=== PATIENT | female | born 2000 | race Hispanic/Latino ===

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

== ENCOUNTER 2022-06-03 12:10 | Outpatient (CLI) | payer OTHER, SELFPAY ==
[2022-06-03 12:46] LABS: Basophils Absolute Auto 0.1 K/mm3 (0.0-0.1); Eosinophils Absolute Auto 0.1 K/mm3 (0-0.3); Eosinophils Percent Auto 0.9 % (0-4.4); Hemoglobin 13.9 g/dL (12.0-15.0); Immature Granulocyte Absolute 0.03 K/mm3 (0.00-0.031); Immature Granulocyte Percent A 0.3 % (0-0.5); Lymphocytes Absolute Auto 2.59 K/mm3 (0.9-3.2); Lymphocytes Percent Auto 29.1 % (18.3-44.2); Mean Corpuscular HGB Conc 33.1 g/dl (32-36); Mean Corpuscular Hemoglobin 28.5 pg (26-34); Mean Corpuscular Volume 86.1 fl (80-100); Mean Platelet Volume 9.9 fl (7.4-10.4); Monocytes Absolute Auto 0.6 K/mm3 (0.1-0.6); Monocytes Percent Auto 7.1 % (2.6-8.5); Neutrophils Absolute Auto 5.5 K/mm3 (1.3-6.7); Neutrophils Percent Auto 61.6 % (45.5-73.1); Platelet Count Result 269 k/mm3 (150-375); Red Blood Count 4.88 M/mm3 (4.2-5.4); Red Cell Distribution Width 12.9 % (11.5-14.5); White Blood Count 8.9 K/mm3 (4.5-10.0)
[2022-06-03 13:16] LABS: Beta HCG Quantitative < 2.39 mIU/ML
[2022-06-07 10:30] LABS: DHEA-Sulfate 280 mcg/dL (51-321)
[2022-06-07 15:07] LABS: FSH 6.8 mIU/mL (***); Progesterone 0.5 ng/mL (***); Prolactin 10.5 ng/mL (***)
[2022-06-10 12:57] LABS: Testosterone Free 7.7 pg/mL (0.1-6.4); Testosterone Total 30 ng/dL (2-45)
[2022-06-12 21:51] LABS: Estradiol, Ultrasensitive 27 pg/mL
== END 2022-06-03 12:11 | disposition home or self-care (01) ==
LOC: ANHLAB 12:13
PROVIDERS: PCP Physician Assistant; Visit Provider Obstetrics & Gynecology
DX: N92.6 Irregular menstruation, unspecified (principal)
CPT/HCPCS: 36415; 82627; 82670; 83001; 83498; 84144; 84146; 84402; 84403; 84702; 85025

== ENCOUNTER 2022-06-22 01:29 | Day surgery (SDC) | payer OTHER, SELFPAY ==
[2022-06-15 14:11] VITALS: BMI 24.8
--- NOTE | 2022-06-15 14:13 | PC.NURSE ---
Report to the Outpatient Waiting Room, entrance under the green pavilion located off [facility], at time _1100_ on date _06/22/22_. Planned Procedure Time: _1300__. Time changes happen often and if your time is changed the preop area will call you the afternoon before. - You and your visitor will be asked to self-screen and do not enter if you have any COVID symptoms. - A mask is optional within the hospital at this time. Patients may have clear liquids (water, carbonated beverages, clear teas, apple juice) until 3 hours prior to surgery with a maximum of 20 ounces. - No food from midnight until time of surgery - Infants may have breast milk until 4 hours before surgery, infant formula 6 hours prior to surgery. - Children will be allowed to drink immediately following surgery. If applicable, please bring a bottle or sippy cup to assist with drinking. Juice, water, soda, and popsicles are readily available. For infants on formula, please bring formula the day of surgery. Pacifiers are allowed. Take the following medications with a SIP of water the morning of surgery: _pt is on amoxicillin at this time, she thinks she will be done by the ._ DO NOT STOP ANY OF YOUR OTHER PRESCRIPTION MEDICATIONS PRIOR TO SURGERY ?EXCEPT THE FOLLOWING Medications to discontinue per physician ___vitamins or supplements 3 days prior _ Date to take last dose Please no make-up, nail indian, hairspray, perfume, deodorant, or body powder the day of surgery. No jewelry (including any body piercings) or valuables the day of surgery, leave them at home. Please take a shower or bath the night before, or the morning of, surgery with an antibacterial soap. Wear comfortable, loose fitting clothing. Children are encouraged to wear pajamas. - Jewelry must be removed prior to entering the operating room. Rings and piercings that are not removed may be cut off. - The hospital will not accept responsibility for valuables. - Please leave all valuables, including medications, at home the day of surgery. If you are going home after surgery, a licensed corrugated fastener driver must drive you home. - NO public transportation without another adult if you receive anesthesia. - We recommend that an adult stay with you for 24 hours following discharge. - We also recommend that you do not drive, make important decision, drink alcoholic beverages, or take any drugs that were not prescribed by your health care provider for at least 24 hours after your discharge time. For Pediatric surgeries, we recommend two adults accompany the child home. Follow any additional instructions given to you from your surgeon. If you or anyone in your household have experienced Covid symptoms in the past week, please notify your surgeon or the nurse liaison at the phone number below for possible testing. Telephone instructions given to _Patient__and asked if any additional questions and then verbalized understanding. Patient advised to call surgeon office or pre surgery nurse liaison [phone] if any additional questions.
[2022-06-22] VITALS (7 sets, daily range): BP systolic 97–118; BP diastolic 45–73; PULSE 59–89; RESP 15–16; TEMP 37; O2SAT 100; BMI 24.9
--- NOTE | 2022-06-22 07:08 | WPDHPUPDATE1 ---
History and Physical Update Update Date/Time: 06/22/22 07:08 History and Physical has been reviewed, including an updated exam of the patient. There are NO changes in the patient's condition. Risks, benefits, and alternatives have been discussed and questions answered. Patient agrees to proceed with procedure. Proceed with hysteroscopy, polypectomy, possible D&C.
--- NOTE | 2022-06-22 08:52 | WPDANESEPPF ---
Anes - Initial Pre Proc Eval Procedure: Operation Date: 06/22/22 13:00 Proposed Procedures p Hysteroscopy Dilation and Curettage with Polypectomy - Maki Blackmon MD Date/Time: 06/22/22 08:52 Surgeon: Maki Blackmon MD Pre Op Diagnosis: endometrial polyp Patient Data Age: 22 Gender: F Height: 1.5 m Weight: 55.79 kg Allergies Allergy/AdvReac Type Severity Reaction Status Date / Time No Known Allergies Allergy Verified 06/15/22 14:03 Home Medications Medication Instructions Recorded Confirmed Type amoxicillin 500 mg capsule 500 mg PO Q12H 06/10/22 06/15/22 History Patient hx anesthesia problems: none Family hx anesthesia problems: none Results Review: All pre-operative results and documents have been reviewed as part of the pre-operative evaluation. 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 Gender identity (if verbalized by the patient): Female Sexual Orientation (if Verbalized by the Patient): Straight or Heterosexual Spiritual care concerns: No Anes - Eval Final PreProcedure Day of Procedure 06/22/22 08:52 Patient weight: normal Heart: regular rate and rhythm Lungs: clear to auscultation and normal air movement Airway: Mallampati scale class II Neurological: alert and oriented Last oral intake: >/= 8 hours ASA classification: I Emergent: no Anesthetic plan: proceed Anesthesia type and monitoring: general GIVS Results Review: All pre-operative results and documents have been reviewed as part of the pre-operative evaluation. Informed Consent: The patient's anesthetic plan and its attendant risks and benefits were discussed with the patient/family/POA. Questions were solicited and answers provided to the satisfaction of the patient/family/POA.
[2022-06-22] MEDS: LACTATED RINGERS 1,000 ML 30 ML IV CONT (12:05)
[2022-06-22] MEDS: ACETAMINOPHEN 500 MG TABLET 1000 MG PO (12:14)
[2022-06-22] MEDS: KETOROLAC 30 MG/ML VIAL (*BKC) IV PUSH (13:30)
--- NOTE | 2022-06-22 13:38 | W.PM.PROC2 ---
Procedure Note - Detailed Date of Procedure 06/22/22 Pre-op Diagnosis endometrial polyp Post-op Diagnosis Other (AUB) Procedure Performed Hysteroscopy with D&C Surgeon Maki Blackmon MD Anesthesia MAC Findings Uterus 7cm, normal cavity without masses, thickened endometrium throughout. Bilateral tubal ostia visualized. Good hemostasis at end of case. Description of Procedure Cristal was taken to the operating room where she was placed under sedation without complications. She was then prepped and draped in the usual sterile fashion in the dorsal lithotomy position with her legs in low Franck stirrups. A time-out was performed and no perioperative antibiotics were indicated. A bivalve speculum was placed within the vagina where the cervix was easily identified. The anterior lip of the cervix was grasped with a single-tooth tenaculum. The cervix was then serially dilated to allow for the hysteroscope. The hysteroscope was advanced into the uterine cavity with the above findings noted. A very gentle curettage was then performed to obtain a small endometrial sample. The hysteroscope was once again advanced into the uterine cavity where it was noted to be normal. Good hemostasis was noted. All instruments were removed from the vagina. Sponge, lap, instrument, and needle counts were correct at the end of the procedure. Patient was awoken from anesthesia and taken to recovery with plans of same-day discharge. Estimated Blood Loss 5 IV Fluids 700 (Fluid deficit: 0cc) Pathology Yes (endometrial curettings) Complications No immediate complications Condition Stable Disposition Same day [facility] Billing Surgery - Charge Forward: Surgery Billing
[2022-06-22] MEDS: ONDANSETRON INJ 4 MG/2 ML VIAL IV PUSH (14:24)
[2022-06-22] MEDS: oxyCODONE HCL (*CRX) 5 MG TAB IR PO (15:16)
== END 2022-06-22 16:20 | disposition home or self-care (01) ==
PROVIDERS: PCP Physician Assistant; Visit Provider Obstetrics & Gynecology
PROC: 0U5B8ZZ Destruction of Endometrium, Via Natural or Artificial Opening Endoscopic (ICD-10-PCS; CPT 58563; principal; 2022-06-22 13:00)
DX: N93.9 Abnormal uterine and vaginal bleeding, unspecified (principal)
CPT/HCPCS: 58558; 88305; A9270; J1885; J2250; J2405; J2704; J3010; J7120

== ENCOUNTER 2022-09-01 00:40 | Emergency (ER) | payer OTHER, SELFPAY ==
--- NOTE | ~2022-09-01 | US_ITS ---
Pelvic ultrasound. Clinical History: First trimester , vaginal bleeding, evaluate for ectopic Technique: Realtime transabdominal and transvaginal scanning of the pelvis was performed. Color flow Doppler and Doppler spectral analysis were performed. Findings: The uterus is anteverted, and contains an early intrauterine gestational sac. Average sac d iameter of 7 mm corresponds to an estimated gestational age of 5 weeks 3 days. Yolk sac present witho ut visible pole. The right ovary measures 2.7 x 1.9 x 1.5 cm. No significant right ovarian or adnexal mass is seen. The left ovary measures 2.5 x 1.6 cm. No significant left ovarian or adnexal mass is seen. There is no evidence of free fluid in the cul de sac. Impression: Intrauterine gestational sac with estimated gestational age of 5 weeks 3 days. Yolk sac present witho ut visible pole. This is consistent with the early gestational age. Reviewed, dictated and finalized at [facility]. Impression: Intrauterine gestational sac with estimated gestational age of 5 weeks 3 days. Yolk sac present without visible pole. This is consistent with the early gestational age.
[2022-09-01 00:45] VITALS: BP 123/59; PULSE 80; RESP 16; TEMP 36.6; O2SAT 100
[2022-09-01 01:30] LABS: Basophils Absolute Auto 0.1 K/mm3 (0.0-0.1); Basophils Percent Auto 0.6 % (0.2-1.2); Eosinophils Absolute Auto 0.1 K/mm3 (0-0.3); Hematocrit 38.8 % (37.0-47.0); Hemoglobin 13.3 g/dL (12.0-15.0); Immature Granulocyte Absolute 0.03 K/mm3 (0.00-0.031); Immature Granulocyte Percent A 0.2 % (0-0.5); Lymphocytes Absolute Auto 3.19 K/mm3 (0.9-3.2); Lymphocytes Percent Auto 23.5 % (18.3-44.2); Mean Corpuscular HGB Conc 34.3 g/dl (32-36); Mean Corpuscular Hemoglobin 29.8 pg (26-34); Mean Platelet Volume 9.6 fl (7.4-10.4); Monocytes Absolute Auto 0.8 K/mm3 (0.1-0.6); Monocytes Percent Auto 5.9 % (2.6-8.5); Neutrophils Absolute Auto 9.4 K/mm3 (1.3-6.7); Neutrophils Percent Auto 68.8 % (45.5-73.1); Platelet Count Result 303 k/mm3 (150-375); Red Blood Count 4.46 M/mm3 (4.2-5.4); Red Cell Distribution Width 12.6 % (11.5-14.5); White Blood Count 13.6 K/mm3 (4.5-10.0)
--- NOTE | 2022-09-01 01:35 | ED.PREGNANCY ---
HPI - General Chief complaint: Vaginal Bleeding Stated complaint: 7 weeks , beeding, pain Time Seen by Provider: 09/01/22 01:13 Source: patient Mode of arrival: ambulatory Limitations: no limitations History of Present Illness HPI Narrative: Patient is a 22-year-old female who presents to the ED with report of vaginal spotting. Patient is G1, P0 and currently approximately 6 to 7 weeks gestation. Her last normal menstrual cycle was July 18. [employer] is Dr. Maki Blackmon. Patient reports she developed light brown vaginal spotting yesterday. Today the spotting became more light pink in color. She notes it has not been a large amount, typically only when she wipes. She does also report having lower abdominal cramping, worse on the left side over the last couple of days. Patient has not had a prior ultrasound. She endorses nausea, denies vomiting. Denies fevers, diarrhea, constipation, urinary symptoms. Related Data Allergies Allergy/AdvReac Type Severity Reaction Status Date / Time No Known Allergies Allergy Verified 07/09/22 11:12 Review of Systems Review of Systems: CONSTITUTIONAL: Denies fever, chills, or sweats. CARDIOVASCULAR: Denies chest pain. RESPIRATORY: Denies dyspnea. GASTROINTESTINAL: See HPI. GENITOURINARY: See HPI. SKIN: Denies rash or itching. MUSCULOSKELETAL: Denies back pain, joint pain, or myalgia. All systems reviewed & are unremarkable except as noted in HPI and below PMFSH Past Medical History Medical History (Updated 09/01/22 @ 03:37 by Donna Rand PA-C) No pertinent past medical history Surgical History Surgical History History of hysteroscopy 06/22/2022 Hysteroscopy with D&C No pertinent past surgical history Social History Social History (Updated 07/09/22 @ 11:13 by Francine Garcia CMA) Smoking status: Never smoker Alcohol intake: never Substance use: never Substance use type: does not use Lack of Transportation: No Lack of Food: Never True Current Housing: I Have Housing Concerned About Future Housing: No Difficulty Paying Gas/Electric Bills: No Difficulty Paying for Meds: No Currently Unemployed: No Education: High School Diploma/GED Difficulty w/ Childcare or Family Care: No Living arrangements: with family Additional living arrangements comments: boyfriend Occupation/Education: occupation 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 HEAD: Normocephalic, atraumatic. NECK: Supple. No adenopathy, no masses. RESPIRATORY: Airway patent, respirations nonlabored. Clear to auscultation bilaterally, no rales, rhonchi, wheezing. CARDIOVASCULAR: Regular rate and rhythm without murmurs, rubs, or gallops. Radial pulses 2+ and equal bilaterally. ABDOMINAL: Soft, minimal tenderness in left lower abdomen, nondistended, no hepatosplenomegaly. Normoactive BS. PELVIC: Normal external genitalia. No significant vaginal bleeding. No bright red bleeding. Very trace evidence of light brown discharge. Cervix appears normal, os appears closed. MUSCULOSKELETAL: Moves all extremities. Strength/ROM intact without gross deformities. SKIN: Warm, dry, normal color. No rashes. NEURO: A&O X3. Speech clear. Cranial nerves II-XII grossly intact. Steady gait. No ataxic movements. PSYCHIATRIC: Appropriate mood and affect. Normal interaction. Course Vital Signs Vital signs: Vital Signs Temperature 97.8 F 09/01/22 00:45 Pulse Rate 80 09/01/22 00:45 Respiratory Rate 16 09/01/22 00:45 Blood Pressure 123/59 L 09/01/22 00:45 Pulse Oximetry 100 09/01/22 00:45 Oxygen Delivery Room Air 09/01/22 00:45 Tempera
== END 2022-09-01 03:48 | disposition home or self-care (01) ==
PROVIDERS: Emergency Provider Physician Assistant; PCP Physician Assistant
DX: O20.0 Threatened abortion (principal); Z3A.01 Less than 8 weeks gestation of pregnancy
CPT/HCPCS: 36415; 76801; 76817; 84702; 85025; 85461; 86850; 86900; 86901; 99284

== ENCOUNTER 2022-09-25 14:40 | Outpatient (CLI) | payer OTHER, SELFPAY ==
[2022-09-25 15:21] LABS: Basophils Absolute Auto 0.1 K/mm3 (0.0-0.1); Basophils Percent Auto 0.5 % (0.2-1.2); Eosinophils Absolute Auto 0.1 K/mm3 (0-0.3); Eosinophils Percent Auto 0.5 % (0-4.4); Hematocrit 40.8 % (37.0-47.0); Hemoglobin 14.1 g/dL (12.0-15.0); Immature Granulocyte Absolute 0.04 K/mm3 (0.00-0.031); Immature Granulocyte Percent A 0.3 % (0-0.5); Lymphocytes Absolute Auto 2.67 K/mm3 (0.9-3.2); Lymphocytes Percent Auto 20.6 % (18.3-44.2); Mean Corpuscular HGB Conc 34.6 g/dl (32-36); Mean Corpuscular Hemoglobin 30.3 pg (26-34); Mean Corpuscular Volume 87.7 fl (80-100); Mean Platelet Volume 10.3 fl (7.4-10.4); Monocytes Absolute Auto 0.6 K/mm3 (0.1-0.6); Monocytes Percent Auto 4.8 % (2.6-8.5); Neutrophils Absolute Auto 9.5 K/mm3 (1.3-6.7); Neutrophils Percent Auto 73.3 % (45.5-73.1); Platelet Count Result 288 k/mm3 (150-375); Red Blood Count 4.65 M/mm3 (4.2-5.4); Red Cell Distribution Width 12.4 % (11.5-14.5); White Blood Count 12.9 K/mm3 (4.5-10.0)
[2022-09-25 16:11] LABS: HIV 1/2 Ab P24 Ag Result Negative (Negative)
[2022-09-25 16:18] LABS: Hepatitis B Surface Antigen Negative (Negative); Rubella IgG Antibody 13.6 IU/ML
[2022-09-28 12:37] LABS: Rapid Plasma Reagin Non-Reactive (NonReactive)
[2022-09-30 11:27] LABS: CMV IgG Antibody 0.78 U/mL (<0.60)
[2022-10-07 16:33] LABS: CF Result NEGATIVE (NEGATIVE); Ethnicity NG
[2022-10-11 08:37] LABS: SMA 2.0 RISK VARIANT NOT DETECTED
[2022-10-16 15:30] LABS: SMA Results Received Yes
== END 2022-09-25 14:41 | disposition home or self-care (01) ==
LOC: ANHLAB 14:42
PROVIDERS: PCP Physician Assistant; Visit Provider Student in an Organized Health Care Education/Training Program
DX: N94.89 Other specified conditions associated with female genital organs and menstrual cycle (principal)
CPT/HCPCS: 36415; 81220; 81329; 84702; 85025; 86592; 86644; 86703; 86747; 86762; 86787; 86850; 86900; 86901; 87077; 87086; 87088; 87186; 87340; G0432

== ENCOUNTER 2022-10-13 17:20 | Outpatient (CLI) | payer OTHER, SELFPAY | END 2022-10-13 17:21 | disposition home or self-care (01) | LOC: ANHLAB 17:23 | PROVIDERS: PCP Physician Assistant; Visit Provider Obstetrics & Gynecology | DX: Z34.90 Encounter for supervision of normal pregnancy, unspecified, unspecified trimester (principal); Z3A.00 Weeks of gestation of pregnancy not specified | CPT/HCPCS: 36415; 81420 ==

== ENCOUNTER 2022-10-14 22:10 | Emergency (ER) | payer OTHER, SELFPAY ==
--- NOTE | ~2022-10-14 | US_ITS ---
Renal-Bladder ultrasound Clinical History: Right flank pain Technique: Real-time sonographic imaging of the kidneys and urinary bladder was performed. Findings: The right kidney measures 10.4 cm in length and the left kidney measures 9.5 cm. There is n o hydronephrosis or renal calculus identified. Renal cortical echogenicity is within normal limits. N o renal mass lesion is identified. The urinary bladder is moderately distended at the time of this exam. No intraluminal echoes are iden tified. No abnormal wall thickening is seen. Impression: Unremarkable ultrasound of the kidneys and urinary bladder. Reviewed, dictated and finalized at location M. Impression: Unremarkable ultrasound of the kidneys and urinary bladder.
[2022-10-14 22:18] VITALS: BP 114/73; PULSE 105; RESP 20; TEMP 36.7; O2SAT 100
[2022-10-14 22:36] VITALS: BP 129/65; PULSE 88; RESP 15; O2SAT 100
--- NOTE | 2022-10-14 23:25 | PC.NURSE ---
Pt to US via wheelchair at this time.
[2022-10-14 23:28] LABS: Basophils Absolute Auto 0.1 K/mm3 (0.0-0.1); Basophils Percent Auto 0.3 % (0.2-1.2); Eosinophils Percent Auto 0.2 % (0-4.4); Hematocrit 36.7 % (37.0-47.0); Hemoglobin 12.9 g/dL (12.0-15.0); Immature Granulocyte Absolute 0.06 K/mm3 (0.00-0.031); Immature Granulocyte Percent A 0.4 % (0-0.5); Lymphocytes Absolute Auto 2.06 K/mm3 (0.9-3.2); Lymphocytes Percent Auto 12.6 % (18.3-44.2); Mean Corpuscular HGB Conc 35.1 g/dl (32-36); Mean Corpuscular Hemoglobin 30.6 pg (26-34); Mean Platelet Volume 10.2 fl (7.4-10.4); Monocytes Absolute Auto 0.9 K/mm3 (0.1-0.6); Monocytes Percent Auto 5.6 % (2.6-8.5); Neutrophils Absolute Auto 13.2 K/mm3 (1.3-6.7); Neutrophils Percent Auto 80.9 % (45.5-73.1); Platelet Count Result 277 k/mm3 (150-375); Red Blood Count 4.22 M/mm3 (4.2-5.4); Red Cell Distribution Width 12.2 % (11.5-14.5); White Blood Count 16.4 K/mm3 (4.5-10.0)
[2022-10-14 23:34] LABS: Appearance Urine Clear (Clear); Bacteria Urine Rare /hpf; Bilirubin Urine Negative (Negative); Blood Urine 2+ (Negative); Color Urine Yellow (Yellow); Glucose Urine UA Negative (Negative); Ketones Urine Negative (Negative); Leukocyte Esterase Ur 3+ LEU/UL (Negative); Nitrate Urine Negative (Negative); Non Pathogenic Casts 0-2; Protein Urine Negative (Negative); RBC Urine 0-2 /hpf (0-2); Specific Grav Ur 1.006 (1.001-1.035); Squamous Epithelial Cell Urine Few /hpf (Few); Urobilinogen Urine 0.2 mg/dL (<2.0); WBC Urine 21-50 /hpf
[2022-10-14 23:44] LABS: Alanine Aminotransferase 32 U/L (6-35); Albumin Level 4.1 g/dL (3.5-5.1); Alkaline Phosphatase 76 U/L (38-126); Anion Gap 11 mmol/L (8-16); Aspartate Amino Transferase 28 U/L (14-36); Bilirubin,Total 0.5 mg/dL (0.2-1.3); Blood Urea Nitrogen 5 mg/dL (7-17); Carbon Dioxide 23 mmol/L (22-30); Chloride 102 mmol/L (98-107); Estimated CRCL calculation 137 ml/min; Estimated Glomerular Filt Rate > 60; Glucose 87 mg/dL (65-110); Lipase 112 U/L (23-300); Potassium 3.5 mmol/L (3.4-5.0); Sodium 136 mmol/L (137-145)
[2022-10-14 23:48] VITALS: BP 126/72; PULSE 108; RESP 13; O2SAT 100
[2022-10-14] MEDS: diphenhydrAMINE HCl INJ 50 MG/ML VIAL 25 MG IV PUSH (23:49)
[2022-10-14] MEDS: SODIUM CHLORIDE 0.9% IV 1,000 ML 999 ML IV CONT (23:49)
[2022-10-14] MEDS: METOCLOPRAMIDE HCL INJ 10 MG/2 ML VIAL IV PUSH (23:50)
[2022-10-15] LABS: Add Urine Microscopic? YES
[2022-10-15 00:02] VITALS: BP 111/89; PULSE 113; RESP 20; O2SAT 100
[2022-10-15 00:16] VITALS: BP 92/58; PULSE 93; RESP 21; O2SAT 100
--- NOTE | 2022-10-15 00:16 | ED.ABDPAIN ---
HPI - Abdominal Pain General Chief Complaint: Abdominal Pain Stated Complaint: flank pain, retention Time Seen by Provider: 10/14/22 23:09 Source: patient Mode of arrival: ambulatory Limitations: no limitations History of Present Illness HPI narrative: This is a 22-year-old , 11 weeks , that presents to the emergency department for right flank pain. Ongoing today. Associated with dysuria and urinary frequency. Her OB is Dr. Blackmon. She was recently on Macrobid for a UTI. Reports she finished this as prescribed. Does report some nausea and vomiting. Denies fevers, hematuria, pelvic cramping, or vaginal bleeding. Related Data Home Medications Medication Instructions Recorded Confirmed PNV 153-FA 400 mcg-om3 35 mg-dha tablet PO 09/02/22 09/30/22 25 mg-epa 5 mg-fish oil chew tablet ( Gummies) Allergies Allergy/AdvReac Type Severity Reaction Status Date / Time No Known Allergies Allergy Verified 10/14/22 22:25 Review of Systems Review of Systems: CONSTITUTIONAL: Denies fever GASTROINTESTINAL: Reports nausea and vomiting. Denies abdominal pain GENITOURINARY: Reports dysuria. Denies hematuria. All systems reviewed & are unremarkable except as noted in HPI and below PMFSH Past Medical History Medical History No pertinent past medical history Suppression of menses Vaginal discharge Surgical History Surgical History History of hysteroscopy 06/22/2022 Hysteroscopy with D&C No pertinent past surgical history Social History Social History Smoking status: Never smoker Alcohol intake: never Substance use: never Substance use type: does not use Lack of Transportation: No Lack of Food: Never True Current Housing: I Have Housing Concerned About Future Housing: No Difficulty Paying Gas/Electric Bills: No Difficulty Paying for Meds: No Currently Unemployed: No Education: High School Diploma/GED Difficulty w/ Childcare or Family Care: No Living arrangements: with family Additional living arrangements comments: boyfriend Occupation/Education: occupation 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 HEAD: Normocephalic, atraumatic. EYES: EOMI. CHEST: Clear to auscultation. No respiratory distress. No wheezes rales or rhonchi HEART: Regular rate and rhythm. No murmur heard. Normal peripheral pulses. ABDOMEN: Soft, nontender, nondistended, normal active bowel sounds. Right CVA tenderness EXTREMITIES: Normal range of motion. No edema. SKIN: Warm, dry, no rash. NEURO: No focal deficits. Alert and oriented x3. PSYCH: Normal mood and affect Course Consultations Consultation #1: Spoke with Dr. Mays about patient and workup. If patient is able to tolerate PO intake may discharge with oral antibiotics Date: 10/15/22 Vital Signs Vital signs: Vital Signs Temperature 98.1 F 10/14/22 22:18 Pulse Rate 105 H 10/14/22 22:18 Respiratory Rate 20 10/14/22 22:18 Blood Pressure 114/73 10/14/22 22:18 Pulse Oximetry 100 10/14/22 22:18 Oxygen Delivery Room Air 10/14/22 22:18 Temperature 98.1 F 10/14/22 22:18 Pulse Rate 94 10/15/22 00:52 Respiratory Rate 20 10/15/22 00:52 Blood Pressure 111/61 10/15/22 00:52 Pulse Oximetry 100 10/15/22 00:52 Oxygen Delivery Room Air 10/14/22 22:18 MDM - Abdominal Pain MDM Narrative Medical decision making narrative: Patient presents to the emergency department for flank pain and dysuria. Currently 11 weeks . She denies any pelvic cramping or vaginal bleeding.
[2022-10-15] MEDS: ACETAMINOPHEN 500 MG TABLET 1000 MG PO (00:25)
[2022-10-15 00:52] VITALS: BP 111/61; PULSE 90; PULSE 94; RESP 20; RESP 21; O2SAT 100
[2022-10-15 01:01] VITALS: BP 108/67; PULSE 96; RESP 20; O2SAT 100
[2022-10-15 01:16] VITALS: BP 106/56; PULSE 87; RESP 21; O2SAT 100
[2022-10-15 01:31] VITALS: BP 103/67; PULSE 96; RESP 19; O2SAT 100
== END 2022-10-15 01:59 | disposition home or self-care (01) ==
PROVIDERS: Emergency Provider Physician Assistant; PCP Physician Assistant
DX: O23.01 Infections of kidney in pregnancy, first trimester (principal); Z3A.11 11 weeks gestation of pregnancy
CPT/HCPCS: 36415; 76775; 80053; 81001; 83690; 85025; 87077; 87086; 87088; 87186; 96361; 96365; 96374; 96375; 99284; A9270; J0696; J1200; J2765; J7030

== ENCOUNTER 2022-11-17 21:36 | Emergency (ER) | payer OTHER, SELFPAY ==
[2022-11-17 21:38] VITALS: BP 117/47; PULSE 87; RESP 14; TEMP 36.8; O2SAT 100
[2022-11-17 21:58] LABS: Basophils Percent Auto 0.4 % (0.2-1.2); Eosinophils Absolute Auto 0.1 K/mm3 (0-0.3); Eosinophils Percent Auto 0.6 % (0-4.4); Hematocrit 35.4 % (37.0-47.0); Hemoglobin 12.3 g/dL (12.0-15.0); Immature Granulocyte Absolute 0.03 K/mm3 (0.00-0.031); Immature Granulocyte Percent A 0.3 % (0-0.5); Lymphocytes Absolute Auto 2.38 K/mm3 (0.9-3.2); Lymphocytes Percent Auto 25.3 % (18.3-44.2); Mean Corpuscular HGB Conc 34.7 g/dl (32-36); Mean Corpuscular Hemoglobin 30.6 pg (26-34); Mean Corpuscular Volume 88.1 fl (80-100); Mean Platelet Volume 9.9 fl (7.4-10.4); Monocytes Absolute Auto 0.8 K/mm3 (0.1-0.6); Monocytes Percent Auto 8.7 % (2.6-8.5); Neutrophils Absolute Auto 6.1 K/mm3 (1.3-6.7); Neutrophils Percent Auto 64.7 % (45.5-73.1); Platelet Count Result 247 k/mm3 (150-375); Red Blood Count 4.02 M/mm3 (4.2-5.4); Red Cell Distribution Width 12.6 % (11.5-14.5); White Blood Count 9.4 K/mm3 (4.5-10.0)
[2022-11-17 22:03] LABS: Alanine Aminotransferase 22 U/L (6-35); Albumin Level 3.9 g/dL (3.5-5.1); Alkaline Phosphatase 63 U/L (38-126); Anion Gap 8 mmol/L (8-16); Aspartate Amino Transferase 21 U/L (14-36); Bilirubin,Total 0.5 mg/dL (0.2-1.3); Blood Urea Nitrogen 7 mg/dL (7-17); Calcium 8.7 mg/dL (8.4-10.2); Carbon Dioxide 22 mmol/L (22-30); Chloride 104 mmol/L (98-107); Estimated CRCL calculation 108 ml/min; Estimated Glomerular Filt Rate > 60; Glucose 93 mg/dL (65-110); Lipase 188 U/L (23-300); Potassium 3.9 mmol/L (3.4-5.0); Sodium 134 mmol/L (137-145)
[2022-11-17 23:19] LABS: Appearance Urine Cloudy (Clear); Bacteria Urine 2+ /hpf; Bilirubin Urine Negative (Negative); Blood Urine Negative (Negative); Color Urine Dark Yellow (Yellow); Glucose Urine UA Negative (Negative); Ketones Urine Trace mg/dL (Negative); Leukocyte Esterase Ur 2+ LEU/UL (Negative); Need Manual Microscopic Reviewed; Nitrate Urine Negative (Negative); Non Pathogenic Casts 0-2; Protein Urine Trace mg/dL (Negative); RBC Urine 0-2 /hpf (0-2); Specific Grav Ur 1.031 (1.001-1.035); Squamous Epithelial Cell Urine Moderate /hpf (Few); WBC Urine >100 /hpf; pH Urine 6.5 (5.0-9.0)
[2022-11-17 23:20] LABS: Add Urine Microscopic? YES
--- NOTE | 2022-11-18 00:44 | PC.NURSE ---
Patient walked up to triage area and stated that she was going to leave.
== END 2022-11-18 00:44 | disposition left against medical advice (07) ==
LOC: ANHED 11-18 00:57
PROVIDERS: Emergency Provider Emergency Medicine; PCP Physician Assistant
DX: R11.2 Nausea with vomiting, unspecified (principal)
CPT/HCPCS: 36415; 80053; 81001; 81025; 83690; 85025; 87077; 87086; 87186; 99199

== ENCOUNTER 2022-12-06 20:40 | Observation (INO) | payer OTHER, SELFPAY ==
[2022-12-06 20:44] VITALS: BP 113/55; PULSE 90; RESP 20; TEMP 36.6; O2SAT 99
[2022-12-06 21:23] LABS: Appearance Urine Clear (Clear); Bacteria Urine None Seen /hpf; Bilirubin Urine Negative (Negative); Blood Urine 2+ (Negative); Color Urine Yellow (Yellow); Glucose Urine UA Negative (Negative); Ketones Urine Negative (Negative); Leukocyte Esterase Ur 3+ LEU/UL (Negative); Nitrate Urine Negative (Negative); Non Pathogenic Casts 0-2; Protein Urine Trace mg/dL (Negative); RBC Urine 21-50 /hpf (0-2); Specific Grav Ur 1.008 (1.001-1.035); Squamous Epithelial Cell Urine None seen /hpf (Few); WBC Urine 21-50 /hpf; pH Urine 7.5 (5.0-9.0)
[2022-12-06 21:38] LABS: Add Urine Microscopic? YES
[2022-12-06] MEDS: SODIUM CHLORIDE 0.9% IV 1,000 ML 999 ML IV CONT (21:54)
[2022-12-06] MEDS: ONDANSETRON INJ 4 MG/2 ML VIAL IV PUSH (21:55)
[2022-12-06] MEDS: MORPHINE SULFATE (*CRX) 2 MG/ML INJ IV PUSH ×2 (21:57→23:33)
[2022-12-06 21:58] LABS: Basophils Absolute Auto 0.1 K/mm3 (0.0-0.1); Basophils Percent Auto 0.3 % (0.2-1.2); Eosinophils Absolute Auto 0.1 K/mm3 (0-0.3); Eosinophils Percent Auto 0.3 % (0-4.4); Hematocrit 33.3 % (37.0-47.0); Hemoglobin 11.1 g/dL (12.0-15.0); Immature Granulocyte Absolute 0.06 K/mm3 (0.00-0.031); Immature Granulocyte Percent A 0.4 % (0-0.5); Lymphocytes Absolute Auto 2.22 K/mm3 (0.9-3.2); Mean Corpuscular HGB Conc 33.3 g/dl (32-36); Monocytes Absolute Auto 0.9 K/mm3 (0.1-0.6); Monocytes Percent Auto 5.9 % (2.6-8.5); Neutrophils Absolute Auto 11.6 K/mm3 (1.3-6.7); Neutrophils Percent Auto 78.1 % (45.5-73.1); Platelet Count Result 231 k/mm3 (150-375); Red Cell Distribution Width 13.4 % (11.5-14.5); White Blood Count 14.8 K/mm3 (4.5-10.0)
[2022-12-06 22:08] LABS: Alanine Aminotransferase 25 U/L (6-35); Albumin Level 3.5 g/dL (3.5-5.1); Alkaline Phosphatase 67 U/L (38-126); Anion Gap 4 mmol/L (8-16); Aspartate Amino Transferase 24 U/L (14-36); Bilirubin,Total 0.4 mg/dL (0.2-1.3); Blood Urea Nitrogen 5 mg/dL (7-17); Calcium 8.8 mg/dL (8.4-10.2); Carbon Dioxide 23 mmol/L (22-30); Chloride 106 mmol/L (98-107); Estimated CRCL calculation 167 ml/min; Estimated Glomerular Filt Rate > 60; Glucose 86 mg/dL (65-110); Potassium 3.6 mmol/L (3.4-5.0); Sodium 133 mmol/L (137-145)
--- NOTE | 2022-12-06 22:22 | ED.BACK ---
HPI - Back Pain/Injury General Chief Complaint: Back Pain/Injury Stated Complaint: Left flank pain Time Seen by Provider: 12/06/22 20:53 History of Present Illness HPI Narrative: Patient presents to the emergency department with her friend. She is complaining of severe left flank pain. States she has a history of urinary tract infections and this pain is consistent with previous UTIs. Denies fevers chills. Denies urinary symptoms. Patient is 19 weeks . Related Data Home Medications Medication Instructions Recorded Confirmed PNV 153-FA 400 mcg-om3 35 mg-dha tablet PO 09/02/22 11/24/22 25 mg-epa 5 mg-fish oil chew tablet ( Gummies) Allergies Allergy/AdvReac Type Severity Reaction Status Date / Time No Known Allergies Allergy Verified 12/06/22 20:50 Review of Systems Review of Systems: Review of systems negative except what is documented in the [facility] Past Medical History Medical History No pertinent past medical history Suppression of menses Vaginal discharge Surgical History Surgical History History of hysteroscopy 06/22/2022 Hysteroscopy with D&C No pertinent past surgical history Social History Social History Smoking status: Never smoker Alcohol intake: never Substance use: never Substance use type: does not use Lack of Transportation: No Lack of Food: Never True Current Housing: I Have Housing Concerned About Future Housing: No Difficulty Paying Gas/Electric Bills: No Difficulty Paying for Meds: No Currently Unemployed: No Education: High School Diploma/GED Difficulty w/ Childcare or Family Care: No Living arrangements: with family Additional living arrangements comments: boyfriend 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 EYES: PERRLA and EOMI. ENT: Nares clear, no rhinorrhea or epistaxis. Mucous membranes moist. NECK: Supple. CHEST: Clear to auscultation. No respiratory distress. HEART: Regular rate and rhythm. ABDOMEN: Soft, nontender, nondistended. EXTREMITIES: Normal range of motion. No edema. SKIN: Warm, dry, no rash. NEURO: No focal deficits. Alert and oriented x3. PSYCH: Normal mood and affect. Course Course Emergency Course: Differential diagnosis includes but not limited to kidney stone, urinary tract infection, musculoskeletal pain Vital Signs Vital signs: Vital Signs Temperature 36.6 C 12/06/22 20:44 Pulse Rate 90 12/06/22 20:44 Respiratory Rate 20 12/06/22 20:44 Blood Pressure 113/55 L 12/06/22 20:44 Pulse Oximetry 99 12/06/22 20:44 Oxygen Delivery Room Air 12/06/22 20:44 Temperature 36.6 C 12/06/22 20:44 Pulse Rate 90 12/06/22 20:44 Respiratory Rate 20 12/06/22 20:44 Blood Pressure 113/55 L 12/06/22 20:44 Pulse Oximetry 99 12/06/22 20:44 Oxygen Delivery Room Air 12/06/22 20:44 MDM - Back Pain/Injury MDM Narrative Medical decision making narrative: Discussed patient's presentation history and results with FABRIC CUTTER on-call. We are both in agreement that the patient would benefit from admission and IV antibiotics. She is admitted with Ancef ordered based on previous urine culture sensitivity. Patient was sensitive to all antibiotics. Ancef not reported but likely sensitive Lab Data 12/06/22 21:54 12/06/22 21:54 Labs: Lab Results 12/06/22 12/06/22 Range/Units 21:11 21:54 WBC 14.8 H (4.5-10.0) K/mm3 RBC 3.70
[2022-12-06 22:46] VITALS: BP 116/73; PULSE 102; RESP 16; O2SAT 100
[2022-12-06] MEDS: ACETAMINOPHEN 325 MG TABLET 650 MG PO (23:33)
[2022-12-06 23:40] VITALS: BP 128/74; PULSE 102; RESP 18; O2SAT 100
[2022-12-07] VITALS (14 sets, daily range): BP systolic 99–117; BP diastolic 53–72; PULSE 90–112; RESP 18; TEMP 36.6–36.9; O2SAT 98–99; BMI 22.4
--- NOTE | 2022-12-07 00:53 | OBADM ---
This patient, Cristal Ruiz, admitted to the OB room OB Post [facility] for observation. Patient/family oriented to hospital policies and general routines including ID bracelet, bed and alarms, visiting hours, pain management, procedures, bathroom and other care routines, personal items, smoking policy, room service/diet, and visiting hours. Patient/Family are encouraged to report perceived risks to care and to ask questions if they do not understand what they are told or what they should do.
[2022-12-07] MEDS: LACTATED RINGERS 1,000 ML 125 ML IV CONT (01:15)
--- NOTE | 2022-12-07 01:16 | PC.NURSE ---
Dr. Feliz called at 0030 for additional orders on patient after being transferred over from the ED. Verbal orders given to doppler once per shift, continuous LR fluids @ 125mL/hr and continue pain medications that were given in the ED. She will reevaluate in the AM and give report to patients OB provider.
--- NOTE | 2022-12-07 07:36 | PM.IMHP ---
H&P: HPI History of Present Illness Date/Time: 12/07/22 07:36 Chief Complaint: Pyelonephritis in Narrative: 22 yo G1 at 19w0d who presents to the ED with complaint of acute onset left sided flank pain. Pt states her symptoms started yesterday. Pt has had pyelonephritis on her right side previously in this . She reports that the pain was similar. She denies any change in color or odor to her urine. She denies any fevers, chills, nausea, vomiting. She denies any vaginal discharge or bleeding. Review of Systems Review of Systems: All systems reviewed & are unremarkable except as noted in HPI and below Cardiovascular: Cardiovascular: Denies chest pain, Denies leg edema, Denies palpitations, Denies dyspnea and Denies dyspnea on exertion Respiratory: Respiratory: Denies cough, Denies dyspnea and Denies dyspnea on exertion Gastrointestinal: Gastrointestinal: Denies abdominal pain, Denies constipation, Denies diarrhea, Denies nausea and Denies vomiting Genitourinary: Genitourinary: Denies hematuria, Denies urinary frequency, Denies dysuria, Denies pelvic pain, Denies urinary incontinence and Denies vaginal discharge Neurologic: Reports system reviewed and no additional complaints, except as documented Psychiatric: Psychiatric: Reports no additional psychiatric complaints Endocrine: Endocrine: Denies palpitations PMFSH Past Medical History Medical History No pertinent past medical history Suppression of menses Vaginal discharge Surgical History Surgical History History of hysteroscopy 06/22/2022 Hysteroscopy with D&C No pertinent past surgical history Social History Social History Smoking status: Never smoker Alcohol intake: never Substance use: never Substance use type: does not use Lack of Transportation: No Lack of Food: Never True Current Housing: I Have Housing Concerned About Future Housing: No Difficulty Paying Gas/Electric Bills: No Difficulty Paying for Meds: No Currently Unemployed: No Education: High School Diploma/GED Difficulty w/ Childcare or Family Care: No Living arrangements: with family Additional living arrangements comments: boyfriend Occupation/Education: occupation 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 Gender identity (if verbalized by the patient): Female Sexual Orientation (if Verbalized by the Patient): Straight or Heterosexual Spiritual care concerns: No Meds Home Medications and Allergies Home Medications Medication Instructions Recorded Confirmed Type PNV 153-FA 400 mcg-om3 35 mg-dha tablet PO 09/02/22 11/24/22 History 25 mg-epa 5 mg-fish oil chew tablet ( Gummies) doxylamine succinate 25 mg tablet 12.5 mg PO TID #90 tabs 09/30/22 11/24/22 Rx (Unisom (doxylamine)) pyridoxine (vitamin B6) 25 mg 25 mg PO TID #120 tabs 09/30/22 11/24/22 Rx tablet ondansetron 4 mg disintegrating 4 mg PO Q6H PRN nausea and 11/18/22 11/24/22 Rx tablet vomiting #30 tabs Allergies Allergy/AdvReac Type Severity Reaction Status Date / Time No Known Allergies Allergy Verified 12/06/22 20:50 Vital Signs Vital Signs - 24 hr 12/06/22 20:44 12/06/22 22:46 12/06/22 23:40 Temperature 98 F Pulse Rate 90 102 H 102 H Respiratory Rate 20 16 18 Blood Pressure 113/55 L 116/73 128/74 Pulse Oximetry 99 100 100 Oxygen Delivery Room Air 12/07/22 00:14 12/07/22 00:15 12/07/22 00:19 Temperature 98.1 F Pulse Rate 96 Respiratory Rate Blood Pressure 117/63 Pulse Oximetry 99 99 Oxygen Delivery 12/07/22 00:24 12/07/22 00:29 12/07/22 00:30 Temperature Pulse Rate 96 Respiratory Rate Blood Pressure 117/72 Pulse Oximetry 99 99 Oxygen Delivery 12/07/22 00:34 12/07/22 00:39 12/07/22 00:44 Temperature
[2022-12-07 11:05] LABS: Basophils Percent Auto 0.4 % (0.2-1.2); Eosinophils Percent Auto 0.4 % (0-4.4); Hematocrit 30.7 % (37.0-47.0); Hemoglobin 10.2 g/dL (12.0-15.0); Immature Granulocyte Absolute 0.04 K/mm3 (0.00-0.031); Immature Granulocyte Percent A 0.4 % (0-0.5); Lymphocytes Absolute Auto 1.63 K/mm3 (0.9-3.2); Lymphocytes Percent Auto 18.2 % (18.3-44.2); Mean Corpuscular HGB Conc 33.2 g/dl (32-36); Mean Corpuscular Volume 90.3 fl (80-100); Mean Platelet Volume 10.2 fl (7.4-10.4); Monocytes Absolute Auto 0.6 K/mm3 (0.1-0.6); Monocytes Percent Auto 6.3 % (2.6-8.5); Neutrophils Absolute Auto 6.7 K/mm3 (1.3-6.7); Neutrophils Percent Auto 74.3 % (45.5-73.1); Platelet Count Result 196 k/mm3 (150-375); Red Cell Distribution Width 13.4 % (11.5-14.5)
--- NOTE | 2022-12-08 15:06 | PM.OBTRLD ---
OB - Triage/Final Diagnosis Visit Information Reason for evaluation: other (pyelonephritis in ) Comments/Additional reasons for admission: I have assessed the risk for this patient, Cristal Ruiz, and determined that she would benefit from observation care. Evaluation Laboratory results: Laboratory Tests 12/06/22 12/06/22 12/07/22 21:11 21:54 10:47 WBC 14.8 H 9.0 RBC 3.70 L 3.40 L Hgb 11.1 L 10.2 L Hct 33.3 L 30.7 L MCV 90.0 90.3 MCH 30.0 30.0 MCHC 33.3 33.2 RDW 13.4 13.4 Plt Count 231 196 MPV 10.0 10.2 Immature Gran % (Auto) 0.4 0.4 Neut % (Auto) 78.1 H 74.3 H Lymph % (Auto) 15.0 L 18.2 L [place] % (Auto) 5.9 6.3 Eos % (Auto) 0.3 0.4 Baso % (Auto) 0.3 0.4 Lymph # (Auto) 2.22 1.63 [place] # (Auto) 0.9 H 0.6 Eos # (Auto) 0.1 0.0 Baso # (Auto) 0.1 0.0 Abs Immat Gran (auto) 0.06 H 0.04 H Absolute Neuts (auto) 11.6 H 6.7 Absolute Nucleated RBC 0.0 0.0 Nucleated RBC % 0.0 0.0 Sodium 133 L Potassium 3.6 Chloride 106 Carbon Dioxide 23 Anion Gap 4 L BUN 5 L Creatinine 0.30 L Estim Creat Clear Calc 167 Estimated GFR > 60 Glucose 86 Calcium 8.8 Total Bilirubin 0.4 AST 24 ALT 25 Alkaline Phosphatase 67 Total Protein 7.0 Albumin 3.5 Urine Color Yellow Urine Appearance Clear Urine pH 7.5 Ur Specific [place] 1.008 Urine Protein Trace Urine Glucose (UA) Negative Urine Ketones Negative Ur Blood (Man) 2+ H Urine Nitrate Negative Urine Bilirubin Negative Urine Urobilinogen 1.0 Leukocyte Esterase Rfl 3+ H Urine RBC 21-50 H Urine WBC 21-50 H Ur Squamous Epith Cells None seen Urine Bacteria None seen Urine Casts 0-2
== END 2022-12-07 13:51 | disposition home or self-care (01) ==
LOC: ANHED 23:18 → ANHOBPP 12-07 07:15
PROVIDERS: Student in an Organized Health Care Education/Training Program; Admitting Provider Obstetrics & Gynecology Gynecology; Emergency Provider Emergency Medicine; PCP Physician Assistant; Visit Provider Obstetrics & Gynecology
DX: O23.02 Infections of kidney in pregnancy, second trimester (principal); Z3A.19 19 weeks gestation of pregnancy; Z79.899 Other long term (current) drug therapy
CPT/HCPCS: 36415; 80053; 81001; 85025; 87086; 96365; 96374; 96375; 96376; 99285; A9270; G0378; G0379; J0696; J2270; J2405; J7030; J7120

== ENCOUNTER 2023-03-26 07:05 | Observation (INO) | payer OTHER, SELFPAY ==
[2023-03-26] VITALS (7 sets, daily range): BP systolic 105–114; BP diastolic 63–71; PULSE 85–126; BMI 24.0
[2023-03-26 07:46] LABS: Appearance Urine Clear (Clear); Bacteria Urine Rare /hpf; Bilirubin Urine Negative (Negative); Blood Urine Negative (Negative); Color Urine Yellow (Yellow); Glucose Urine UA Negative (Negative); Ketones Urine Negative (Negative); Leukocyte Esterase Ur Trace LEU/UL (Negative); Nitrate Urine Negative (Negative); Non Pathogenic Casts 0-2; Protein Urine Negative (Negative); RBC Urine 0-2 /hpf (0-2); Specific Grav Ur 1.008 (1.001-1.035); Squamous Epithelial Cell Urine Many /hpf (Few); Urobilinogen Urine 0.2 mg/dL (<2.0); WBC Urine 0-5 /hpf
[2023-03-26 08:01] LABS: Add Urine Microscopic? YES
--- NOTE | 2023-03-26 09:23 | PC.NURSE ---
[id number]--REport to Dr. Mays re: pt's reports of abdominal pain, uterine activity, fhr tracing, assessment, u/s, and pt's verbalizing increased vomiting last night. Orders to DC home with instructions for po hydration and to take it easy over the weekend and to return if she starts to feel worse or vomiting increases.
--- NOTE | 2023-03-29 07:55 | PM.OBTRLD ---
OB - Triage/Final Diagnosis Visit Information Date of evaluation: 03/26/23 Reason for evaluation: threatened labor Comments/Additional reasons for admission: I have assessed the risk for this patient, Cristal Ruiz, and determined that she would benefit from observation care. Evaluation Laboratory results: Laboratory Tests 03/26/23 07:36 Urine Color Yellow Urine Appearance Clear Urine pH 8.0 Ur Specific [place] 1.008 Urine Protein Negative Urine Glucose (UA) Negative Urine Ketones Negative Ur Blood (Man) Negative Urine Nitrate Negative Urine Bilirubin Negative Urine Urobilinogen 0.2 Leukocyte Esterase Rfl Trace H Urine RBC 0-2 Urine WBC 0-5 Ur Squamous Epith Cells Many H Urine Bacteria Rare Urine Casts 0-2
== END 2023-03-26 09:20 | disposition home or self-care (01) ==
PROVIDERS: Admitting Provider Student in an Organized Health Care Education/Training Program; Visit Provider Student in an Organized Health Care Education/Training Program
DX: O47.03 False labor before 37 completed weeks of gestation, third trimester (principal); Z3A.34 34 weeks gestation of pregnancy
CPT/HCPCS: 81001; G0378; G0379

== ENCOUNTER 2023-04-27 16:00 | Inpatient (IN) | payer OTHER, SELFPAY ==
[2023-04-27] VITALS (48 sets, daily range): BP systolic 89–128; BP diastolic 56–78; PULSE 86–128; RESP 16–18; TEMP 36.3–36.6; O2SAT 95–100; BMI 24.5
--- NOTE | 2023-04-27 16:00 | LDADM ---
This patient, Cristal Ruiz, was admitted to Labor/Delivery/Recovery 107 on 04/27/23 at 16:00. Plans for labor, pain management and were discussed with patient. Patient/family oriented to hospital policies and general routines including ID bracelet, bed and alarms, visiting hours, pain management, procedures, bathroom and other care routines, personal items, smoking policy, room service/diet and guest tray routines, security routines, and visiting hours. Patient/Family are encouraged to report perceived risks to care and to ask questions if they do not understand what they are told or what they should do. See OBIX for further documentation.
[2023-04-27 16:33] LABS: Basophils Percent Auto 0.3 % (0.2-1.2); Eosinophils Percent Auto 0.2 % (0-4.4); Hematocrit 32.4 % (37.0-47.0); Hemoglobin 9.9 g/dL (12.0-15.0); Immature Granulocyte Absolute 0.02 K/mm3 (0.00-0.031); Immature Granulocyte Percent A 0.3 % (0-0.5); Lymphocytes Absolute Auto 1.68 K/mm3 (0.9-3.2); Mean Corpuscular HGB Conc 30.6 g/dl (32-36); Mean Corpuscular Hemoglobin 24.2 pg (26-34); Mean Corpuscular Volume 79.2 fl (80-100); Mean Platelet Volume 10.7 fl (7.4-10.4); Monocytes Absolute Auto 0.5 K/mm3 (0.1-0.6); Monocytes Percent Auto 7.7 % (2.6-8.5); Neutrophils Absolute Auto 4.2 K/mm3 (1.3-6.7); Neutrophils Percent Auto 65.5 % (45.5-73.1); Platelet Count Result 228 k/mm3 (150-375); Red Blood Count 4.09 M/mm3 (4.2-5.4); Red Cell Distribution Width 14.6 % (11.5-14.5); White Blood Count 6.5 K/mm3 (4.5-10.0)
--- NOTE | 2023-04-27 16:35 | WPDHPUPDATE1 ---
History and Physical Update Update Date/Time: 04/27/23 16:35 22 yo G1 at 39w1d who presents for elective IOL. History and Physical has been reviewed, including an updated exam of the patient. There are NO changes in the patient's condition. Risks, benefits, and alternatives have been discussed and questions answered. Patient agrees to proceed with procedure. A/P: admit to L&D routine admission orders labs reviewed Rh+ GBS +, will start abx in labor plan for cervidil IOL continuous EFM
[2023-04-27] MEDS: ONDANSETRON INJ 4 MG/2 ML VIAL IV PUSH (16:52)
[2023-04-27] MEDS: DINOPROSTONE 10 MG VAG INSERT VAGINAL (16:56)
--- NOTE | 2023-04-27 18:37 | WPDANESEPP ---
Anes - Eval Pre Procedure Procedure: Labor epidural Date/Time: 04/27/23 18:37 Preop Diagnosis: Abdominal pain with contractions Pre Op Diagnosis: iol Patient Data Age: 22 Gender: F Height: 1.52 m Weight: 57 kg Last Vital Signs Temp 97.4 F L 04/27/23 17:37 Pulse 91 04/27/23 18:30 BP 110/64 04/27/23 18:30 O2 Del Method Room Air 04/27/23 17:28 Allergies Allergy/AdvReac Type Severity Reaction Status Date / Time No Known Allergies Allergy Verified 04/26/23 17:17 Home Medications Medication Instructions Recorded Confirmed Type PNV 153-FA 400 mcg-om3 35 mg-dha 1 tablet PO DAILY 09/02/22 04/27/23 History 25 mg-epa 5 mg-fish oil chew tablet ( Gummies) ondansetron 4 mg disintegrating 8 mg PO Q6H PRN nausea and 03/01/23 04/27/23 Rx tablet vomiting #30 tabs ferrous sulfate 325 mg (65 mg 325 mg PO DAILY 03/09/23 04/27/23 History iron) tablet Laboratory Tests 04/27/23 16:20 WBC 6.5 K/mm3 (4.5-10.0) RBC 4.09 L M/mm3 (4.2-5.4) Hgb 9.9 L g/dL (12.0-15.0) Hct 32.4 L % (37.0-47.0) MCV 79.2 L fl (80-100) MCH 24.2 L pg (26-34) MCHC 30.6 L g/dl (32-36) RDW 14.6 H % (11.5-14.5) Plt Count 228 k/mm3 (150-375) MPV 10.7 H fl (7.4-10.4) Immature Gran % (Auto) 0.3 % (0-0.5) Neut % (Auto) 65.5 % (45.5-73.1) Lymph % (Auto) 26.0 % (18.3-44.2) [place] % (Auto) 7.7 % (2.6-8.5) Eos % (Auto) 0.2 % (0-4.4) Baso % (Auto) 0.3 % (0.2-1.2) Lymph # (Auto) 1.68 K/mm3 (0.9-3.2) [place] # (Auto) 0.5 K/mm3 (0.1-0.6) Eos # (Auto) 0.0 K/mm3 (0-0.3) Baso # (Auto) 0.0 K/mm3 (0.0-0.1) Abs Immat Gran (auto) 0.02 K/mm3 (0.00-0.031) Absolute Neuts (auto) 4.2 K/mm3 (1.3-6.7) Absolute Nucleated RBC 0.000 K/mm3 (0.0-0.012) Nucleated RBC % 0.0 % (0.0-0.2) RPR Pending Blood Type O Positive Antibody Screen Negative : gestational age HCG: positive Patient hx anesthesia problems: none Family hx anesthesia problems: none Results Review: All pre-operative results and documents have been reviewed as part of the pre-operative evaluation. [facility] Past Medical History Medical History (Updated 04/27/23 @ 18:38 by Ryder Pandey CRNA) No pertinent past medical history and not yet delivered Suppression of menses Vaginal discharge Surgical History Surgical History (Reviewed 04/26/23 @ 17:17 by Francine Garcia [facility]) History of hysteroscopy 06/22/2022 Hysteroscopy with D&C No pertinent past surgical history Social History Social History (Reviewed 04/26/23 @ 17:17 by Francine Garcia [facility]) Smoking status: Never smoker Alcohol intake: never Substance use: never Substance use type: does not use Do You Feel Safe in your Home?: No Lack of Transportation: No Lack of Food: Never True Current Housing: I Have Housing Concerned About Future Housing: No Difficulty Paying Gas/Electric Bills: No Difficulty Paying for Meds: No Currently Unemployed: YES Education: High School Diploma/GED Difficulty w/ Childcare or Family Care: No Living arrangements: with family Additional living arrangements comments: boyfriend Occupation/Education: occupation 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
[2023-04-28] VITALS (380 sets, daily range): BP systolic 81–141; BP diastolic 39–91; PULSE 68–178; TEMP 36.3–36.9; O2SAT 95–100
[2023-04-28] MEDS: fentaNYL CITRATE INJ (*CRX) 100 MCG/2 ML VIAL 50 MCG IV PUSH ×2 (03:14→04:52)
[2023-04-28] MEDS: ONDANSETRON INJ 4 MG/2 ML VIAL IV PUSH ×4 (03:34→22:41)
[2023-04-28] MEDS: LACTATED RINGERS 1,000 ML 125 ML IV CONT ×4 (05:05→17:44)
[2023-04-28] MEDS: AMPICILLIN 2 GM/NS 100 ML 2 GM/100 ML BAG IVPB (05:10)
--- NOTE | 2023-04-28 07:38 | PM.OBPNLAB ---
Pain Control Date/time seen: 04/28/23 07:38 Pain control: epidural Comments: Pt comfortable with epidural. Pelvic Exam Dilation (cm): 3 Effacement (%): 60 station: -1 Amniotic membrane status: Ruptured Comments: AROM for clear fluid Contractions Monitor mode: External Contraction frequency: 4 Contraction pattern: Regular Contraction intensity: Moderate Status status: Category l Assessment and Plan Assessment: induction ongoing Plan: continuous present management
[2023-04-28] MEDS: OXYTOCIN 30 UNITS/NS 500 ML 30 UNITS/500 ML BAG IV CONT (07:47)
[2023-04-28 08:47] LABS: Rapid Plasma Reagin Non-Reactive (NonReactive)
[2023-04-28] MEDS: AMPICILLIN 1 GM/NS 50 ML 1 GM/50 ML BAG IVPB ×4 (09:18→23:00)
[2023-04-29] VITALS (51 sets, daily range): BP systolic 94–156; BP diastolic 52–140; PULSE 41–168; RESP 16–18; TEMP 36.8–37.2; O2SAT 81–100
--- NOTE | 2023-04-29 02:47 | PM.OBPRVD ---
OB - Vaginal Delivery Note Procedure Delivery date: 04/29/23 Induction method: Per Cervidil Protocol Delivery augmentation: Rupture of Membranes and Pitocin Delivery monitor: External FHT and Internal Uterine Route of delivery: Episiotomy description: None Laceration Description: Perineal - 1st Degree Delivery repair: vicryl Specimen: No Quantitative Blood Loss (ml): 250 Anesthesia type: Epidural Disposition: Floor Complications: No immediate complications Baby Date of : 04/29/23 Time of : 02:31 Weeks of gestation at delivery: 39 Infant gender: Female presentation: vertex position: Right Occiput Anterior Placenta delivery description: Spontaneous Cord Vessel Description: 3 Vessels and Around Body score one minute: 8 score five minutes: 9 AMG Delivery Billing Delivery Delivery: Delivery Charge
[2023-04-29] MEDS: OXYTOCIN 30 UNITS/NS 500 ML 30 UNITS/500 ML BAG 125 UNITS IV CONT (03:00)
[2023-04-29] MEDS: ACETAMINOPHEN 500 MG TABLET (03:33)
[2023-04-29] MEDS: miSOPROStol 200 MCG TABLET 1000 MCG RECTAL (03:50)
[2023-04-29] MEDS: IBUPROFEN 600 MG TABLET PO ×2 (05:45→12:04)
[2023-04-29] MEDS: MULTIVIT/MIN/PREN/FOL AC/IRON TABLET 1 TAB PO (08:40)
[2023-04-29] MEDS: ACETAMINOPHEN 325 MG TABLET 650 MG PO (10:35)
[2023-04-29] MEDS: HYDROcodone/acetaminophen (*CRX) 5-325 MG TABLET 1 TAB PO ×2 (10:54→14:37)
--- NOTE | 2023-04-29 14:21 | PC.NURSE ---
[id number] Introductions were made. Mother verbalizes she is able to independently latch infant without any nipple discomfort and is responsively . is currently meeting outcomes for weight, output, jaundice, blood sugar and feeding frequencies of 8-12 times in 24 hours. Mother declines any additional assistance or education at this time. Mother is encouraged to call for assistance if her doesn?t latch, pain with latching, questions or concerns. Mother voiced understanding of information shared along with RN LC name written on the communication board as a resource for assistance. Reported to the Primary RN.
--- NOTE | 2023-04-29 15:47 | PM.OBDSVD ---
DS: Admitting Diagnosis Discharge Date 04/30/23 Admitting Diagnosis intrauterine at term DS: Discharge Diagnosis Discharge Diagnosis (1) Normal vaginal delivery: Code(s): O80 - Encounter for full-term uncomplicated delivery Status: Acute OB - DS: Summary OB Procedures : None OB Procedures Intrapartum: Spontaneous Vag Delivery OB Procedures: : None Peripartum Data Laceration Description: Perineal - 1st Degree Episiotomy description: None Status at Discharge Functional status at discharge: independent ambulation Overall status at discharge: patient is back to baseline Time Spent with Patient Time attestation: Total time spent providing and/or coordinating discharge services: Time spent: Less than 30 minutes Exam Const: General: comfortable and no acute distress Resp: Effort & Inspection: normal respiratory effort Auscultation: clear to auscultation bilaterally Cardio: Rate: regular rate GI: GI Palp: Yes Soft to palpation Auscultation: normal bowel sounds Other: Fundus firm below umbilicus Psych: Appearance: grossly normal Mental Status: mental status grossly normal Affect: normal affect Discharge Plan Discharge Discharging Clinician: Mina Mays Patient Disposition: Home, Self-Care Activity: as tolerated and pelvic rest Diet: regular Discharge Instructions: Education: Mom and Baby Guide Given to: Mother Follow-Up: Call your delivering provider's office for an appointment to be seen. Mom and baby should come to the [facility] for the follow-up appointment. Appointment Date/Time: May 03, 2023 at 10:00 am What to expect at your follow-up visit: Physical Assessment Call [phone] if you are unable to keep your appointment time. BREAST CARE: * Wear a snug supportive bra. * For engorgement discomfort: Breast Feeding: * Apply warm moist washcloths * Express milk as needed to relieve engorgement * Wear loose clothing * For sore nipples: * Identify correct latch-on * Apply warm moist washcloths before and after nursing * Air dry nipples after nursing * May apply Lansinoh cream to nipples PERINEAL CARE: * Until bleeding stops, use your melonie bottle after urinating * Change your pad frequently throughout the day * You may take sitz baths several times a day (fill your bathtub with warm water and soak for 20 minutes.) Do NOT bathe in the water * No tub baths until seen by your physician - You may shower ACTIVITY: * Rest as much as possible. * Do not exercise or lift anything heavier than your baby (such as laundry or other children.) * Avoid stairs or driving as much as possible. * Do not put anything into the vagina. No douching, tampons, or sexual activity until seen by physician. NOTIFY PHYSICIAN IF YOU HAVE ANY QUESTIONS OR IF ANY OF THE FOLLOWING SYMPTOMS OCCUR: * If your perineum becomes red, swollen, or more painful than what you have experienced in the hospital. * If your vaginal bleeding becomes foul smelling. * If your vaginal bleeding becomes more heavy than a period or if your bleeding changes from pink to bright red. However, you may pass an occasional walnut-sized clot once or twice for the first week . * If you experience a sharp, shooting pain in you calves. * If you discover a hard, reddened area on your breast or if you experience flu-like symptoms. DIET: * Eat regular, well-balanced meals. * Drink plenty of fluids daily. Patient Instructions: Vaginal Delivery (DC) Stand Alone Forms: General Discharge Information Follow-up/Referrals: Mina Mays MD [Physician] - Discharge Medications: New acetaminophen 500 mg tablet 500 mg PO Q6H PRN (Reason: pain) Qty: 30 0RF ibuprofen 600 mg tablet 600 mg PO Q6H PRN (Reason: pain) Qty: 30 0RF Continued Gummies 400 mcg-35 mg- 25 mg-5 mg tablet,chewable
[2023-04-29] MEDS: HYDROcodone/acetaminophen (*CRX) 10-325 MG TABLET 1 TAB PO (20:31)
[2023-04-30 03:30] VITALS: BP 109/68; PULSE 77; RESP 18; TEMP 36.2; O2SAT 99
[2023-04-30] MEDS: HYDROcodone/acetaminophen (*CRX) 5-325 MG TABLET 1 TAB PO ×4 (03:32→23:38)
[2023-04-30] MEDS: IBUPROFEN 600 MG TABLET PO ×2 (03:32→16:24)
[2023-04-30 05:17] LABS: Hematocrit 27.7 % (37.0-47.0); Hemoglobin 8.4 g/dL (12.0-15.0)
[2023-04-30 07:35] VITALS: BP 107/65; PULSE 74; RESP 16; TEMP 36.7; O2SAT 99
--- NOTE | 2023-04-30 07:57 | WPDANLDPN2 ---
Anes-Prog Note L&D Date/Time: 04/30/23 07:57 Comfortable throughout: labor and delivery Neuraxial method: epidural Epidural/Spinal procedure site: clean & non-tender Neuro status: Neuro function grossly intact. Cardiovascular status: normal Respiratory status: normal Airway patency: baseline Mental status: baseline Post-Op hydration status: normal Vital Signs: Last Vital Signs Temp 36.2 C L 04/30/23 03:30 Pulse 77 04/30/23 03:30 Resp 18 04/30/23 03:30 BP 109/68 04/30/23 03:30 Pulse Ox 99 04/30/23 03:30 O2 Del Method Room Air 04/28/23 08:00 Pain score (VAS): 1 Patient feedback: Patient satisfied with anesthetic care.
[2023-04-30 08:00] VITALS: PULSE 77; RESP 18; O2SAT 99
[2023-04-30] MEDS: POLYSACCHARIDE IRON COMPLEX 150 MG CAPSULE PO ×2 (09:18→16:26)
[2023-04-30] MEDS: DOCUSATE SODIUM 100 MG CAPSULE PO ×2 (09:18→16:25)
[2023-04-30] MEDS: MULTIVIT/MIN/PREN/FOL AC/IRON TABLET 1 TAB PO (09:18)
--- NOTE | 2023-04-30 11:24 | PC.NURSE ---
[id number] Consulted with patient to assess needs related to . Discussed with mother her successes, concerns and any questions she has. We reviewed working with the , supporting breast, protecting her nipples with an optimal deep latch, good positioning, and good hand washing. Encouraged understanding the benefits of skin to skin, responding to feeding cues, frequencies of feeding 8-12 times in 24 hours (approximately 2-3 hours), duration of feedings, milk production, intake/output feeding sheet and signs of adequate intake encouraging swallowing at the breast. Reviewed positioning and alignment, supporting breast, off-centered (asymmetrical latch) and leading with the chin with big, open, wide gape. Infant latched optimally to the right, then the left breast in cross cradle position. Education given to the mother of how to visualize the suckling (with good rocking jaw motion) swallows (dropping of the lower jaw) and how to listen for drinking at the breast (the ka sound) and infant demonstrates well. The was able to maintain latch without discomfort to mother. Nipple care reviewed with optimal latch, good positioning and using clean hands when touching her breast. Resources used to facilitate learning were used from the visual handouts/ tool/mom and baby guide/feeding sheet. Mother voiced understanding of the education shared, to call for assistance if the infant does not latch or if there is discomfort with . Reported to the Primary RN.
[2023-04-30 19:12] VITALS: BP 116/80; PULSE 66; RESP 18; TEMP 36.6; O2SAT 99
[2023-05-01] MEDS: HYDROcodone/acetaminophen (*CRX) 5-325 MG TABLET 1 TAB PO ×2 (04:37→08:31)
[2023-05-01 08:15] VITALS: BP 109/58; PULSE 61; RESP 18; TEMP 36.9
[2023-05-01] MEDS: IBUPROFEN 600 MG TABLET PO (08:31)
[2023-05-01] MEDS: POLYSACCHARIDE IRON COMPLEX 150 MG CAPSULE PO (08:31)
[2023-05-01] MEDS: DOCUSATE SODIUM 100 MG CAPSULE PO (08:31)
[2023-05-01] MEDS: MULTIVIT/MIN/PREN/FOL AC/IRON TABLET 1 TAB PO (08:31)
--- NOTE | 2023-05-01 08:48 | PC.NURSE ---
PIH orders and Magnesium sulfate IV bolus and magnesium sulfate 2 gm/hr orders placed for Delroy Barker RN for 04/30/23 at 1900 per MD correspondence orders.
--- NOTE | 2023-05-01 09:38 | P.DS_ITS ---
DS: Admitting Diagnosis Discharge Date 05/01/2023 Admitting Diagnosis DS: Discharge Diagnosis Discharge Diagnosis (1) , delivered: Code(s): O80 - Encounter for full-term uncomplicated delivery Status: Acute OB - DS: Summary OB Procedures : None OB Procedures Intrapartum: Spontaneous Vag Delivery OB Procedures: : None Peripartum Data Laceration Description: Perineal - 1st Degree Episiotomy description: None Time Spent with Patient Time attestation: Total time spent providing and/or coordinating discharge services: Discharge Plan Discharge Discharging Clinician: Mina Mays Patient Disposition: Home, Self-Care Activity: as tolerated and pelvic rest Diet: regular Patient Instructions: Antibiotic Form, Vaginal Delivery (DC) Stand Alone Forms: General Discharge Information Follow-up/Referrals: Mina Mays MD [Physician] - Discharge Medications: New acetaminophen 500 mg tablet 500 mg PO Q6H PRN (Reason: pain) Qty: 30 0RF ibuprofen 600 mg tablet 600 mg PO Q6H PRN (Reason: pain) Qty: 30 0RF Continued Gummies 400 mcg-35 mg- 25 mg-5 mg tablet,chewable 1 tablet PO DAILY ferrous sulfate 325 mg (65 mg iron) tablet 325 mg PO DAILY ondansetron 4 mg tablet,disintegrating 8 mg PO Q6H PRN (Reason: nausea and vomiting) Qty: 30 2RF Date of admission: 04/27/23 16:00 Primary Care Provider: PHYSICIAN,CHOIR DIRECTOR Admitting Provider: Mina Mays Attending physician on admission: Mina Mays Condition: Stable
[2023-05-03 10:30] VITALS: BP 115/67; PULSE 97; RESP 18; TEMP 36.6; O2SAT 100
== END 2023-05-01 14:45 | disposition home or self-care (01) | DRG 560 ==
LOC: ANHOB2 05-01 10:26 → ANHLDR 05-03 12:15 → ANHOB2 05-03 12:15
PROVIDERS: Admitting Provider Student in an Organized Health Care Education/Training Program; Visit Provider Obstetrics & Gynecology
DX: O99.824 Streptococcus B carrier state complicating childbirth (principal); Z37.0 Single live birth; Z3A.39 39 weeks gestation of pregnancy; O70.0 First degree perineal laceration during delivery
CPT/HCPCS: 36415; 85014; 85018; 85025; 86592; 86850; 86900; 86901; A9270; J0290; J2405; J2590; J2795; J3010; J7120

== ENCOUNTER 2024-11-15 19:57 | Emergency (ER) | payer MEDICAID, SELFPAY ==
[2024-11-15] VITALS (10 sets, daily range): BP systolic 110–124; BP diastolic 57–71; PULSE 76–86; RESP 16–22; TEMP 36.6; O2SAT 99–100
--- NOTE | ~2024-11-15 | US_ITS ---
EXAMINATION: US OB <=14 wk fetus w TV DATE: 11/16/2024 01:49 INDICATION: First trimester presenting with vaginal bleeding and lower abdominal pain. TECHNIQUE: Real-time pelvic ultrasound utilizing both a transvaginal and transabdominal probe was performed. The interpreting radiologist was not present for the study. COMPARISON: None. FINDINGS: The uterus measures 8.1 x 4.1 x 5.1 cm. There is an intrauterine gestational sac with double deciduous sign. A subtle yolk sac and peripheral 1.5 mm linear echogenic focus likely representing a pole are identified within the gestational sac. The mean sac diameter measures 5 mm, which correlates with an estimated gestational age of 5 weeks and 2 days. No discernible heart motion is evident on the cine grayscale imaging, likely due to early stage of . There is a large hypoechoic subchorionic hematoma surrounding the majority the gestational sac. Minimal amount of anechoic fluid/blood within the endocervical canal. The right ovary measures 2.6 x 1.9 x 1.1 cm. The left ovary measures 3.5 x 2.7 x 1.7 cm. Vascular flow identified in both ovaries on color Doppler. There is no free fluid in the pelvis. IMPRESSION: 1. Single intrauterine gestational sac with yolk sac and likely 1.5 mm pole without discernible heart motion on cine imaging which could be due to early stage of or a failed . 2. Gestational age by ultrasound based upon a 5 mm mean sac diameter of 5 weeks 2 day(s) +/- 3 day(s) with ultrasound estimated date of delivery (TO) of 07/27/2025. 3. Gestational sac is positioned in the lower body of the uterus with large subchorionic hematoma surrounding the majority of the gestational sac. Reviewed, dictated and finalized at location A. IMPRESSION: 1. Single intrauterine gestational sac with yolk sac and likely 1.5 mm po le without discernible heart motion on cine imaging which could be due to early stage of or a failed . 2. Gestational age by ultrasound based upon a 5 mm mean sac diameter of 5 week s 2 day(s) +/- 3 day(s) with ultrasound estimated date of delivery (TO) of 07/09. 3. Gestational sac is positioned in the lower body of the uterus with large sub chorionic hematoma surrounding the majority of the gestational sac.
[2024-11-15 23:41] LABS: Hematocrit 37.8 % (37.0-47.0); Hemoglobin 12.8 g/dL (12.0-15.0); Immature Granulocyte Percent A 0.5 % (0-0.5); Lymphocytes Absolute Auto 3.55 K/mm3 (0.9-3.2); Mean Corpuscular HGB Conc 33.9 g/dl (32-36); Mean Corpuscular Hemoglobin 29.2 pg (26-34); Mean Corpuscular Volume 86.3 fl (80-100); Nucleated Red Blood Cells Absolute Auto 0.000 K/mm3 (0.0-0.012); Nucleated Red Blood Cells Perc 0.0 % (0.0-0.2); Platelet Count Result 281 k/mm3 (150-375); Red Blood Count 4.38 M/mm3 (4.2-5.4); White Blood Count 15.4 K/mm3 (4.5-10.0)
[2024-11-15 23:49] LABS: Add Urine Microscopic? YES; Appearance Urine Clear (Clear); Glucose Urine UA Negative (Negative); Leukocyte Esterase Ur Trace LEU/UL (Negative); Nitrate Urine Negative (Negative); Non Pathogenic Casts 0-2; Specific Grav Ur 1.021 (1.001-1.035)
[2024-11-15 23:50] LABS: Pregnancy On Board Control Positive
[2024-11-15 23:51] LABS: INR 1.0; Prothrombin Time 13.2 Seconds (11.1-14.7)
[2024-11-15 23:52] LABS: Partial Thromboplastin Time 29.8 Seconds (22.3-36.8)
[2024-11-16] VITALS (7 sets, daily range): BP systolic 114–135; BP diastolic 61–75; PULSE 71–87; RESP 16–25; TEMP 36.9; O2SAT 98–100
[2024-11-16 00:06] LABS: Anion Gap 9 mmol/L (4-12); Blood Urea Nitrogen 12 mg/dL (7-17); Calcium 9.1 mg/dL (8.4-10.2); Carbon Dioxide 24 mmol/L (22-30); Chloride 103 mmol/L (98-107); Estimated CRCL calculation 127 ml/min; Estimated Glomerular Filt Rate > 60; Glucose 93 mg/dL (65-110); Potassium 4.3 mmol/L (3.4-5.0); Sodium 136 mmol/L (137-145)
--- NOTE | 2024-11-16 00:22 | ED.FEMALEGU ---
HPI - Female Genitourinary General Chief complaint: Vaginal Bleeding Stated complaint: 5 weeks , vag bleeding Time Seen by Provider: 11/15/24 23:18 Source: patient and family (Presents with and daughter) Mode of arrival: ambulatory Limitations: language barrier (Emirati as 2nd language however patient has full fluency without any difficulties with comprehension or speech/communication) History of Present Illness HPI Narrative: Patient presents with concern for vaginal bleeding. She states she is estimated to be 5 weeks . Her symptoms started today approximately 4:00 p.m.. Initially she was having brown discharge. She has also been experiencing some low abdominal pain and cramping. She also some blood with wiping and had some spotting in her PMD. She had a positive test 11/11/2024. Her stated period was 10/10/2024. 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 Cedeño in for this yet although is due to do so on Wednesday. She is a 0 1 female. She did note a blood clot the pad. She has had no serum beta-hCG testing were imaging performed to confirm extra urine . She has taken no medications prior to arrival. Related Data Home Medications ?Medication ?Instructions ?Recorded ?Confirmed ?Last Taken ?Type PNV 153-FA 400 mcg-om3 35 mg-dha 1 tablet PO DAILY 09/02/22 09/06/24 04/26/23 07:00 History 25 mg-epa 5 mg-fish oil chew tablet ( Gummies) Allergies Allergy/AdvReac Type Severity Reaction Status Date / Time No Known Allergies Allergy Verified 09/06/24 14:37 PMFSH Past Medical History Medical History and not yet delivered Vaginal discharge Suppression of menses Surgical History Surgical History History of hysteroscopy 06/22/2022 Hysteroscopy with D&C Social History Social History Social History: Smoking status: Never smoker Alcohol intake: never Substance use: never Substance use type: does not use Do You Feel Safe in your Home?: No Lack of Transportation: No Lack of Food: Never True Current Housing: I Have Housing Concerned About Future Housing: No Difficulty Paying Gas/Electric Bills: No Difficulty Paying for Meds: No Currently Unemployed: YES Education: High School Diploma/GED Difficulty w/ Childcare or Family Care: No Living arrangements: with family Additional living arrangements comments: and daughter Occupation/Education: occupation 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 HEAD: Normocephalic, atraumatic. EYES: Non injected, non icteric ENT: Nares clear, no rhinorrhea or epistaxis. Gross auditory acuity intact. NECK: Supple. No meningismus. CHEST: Speaking in full sentences. No respiratory distress. HEART: Regular rate and rhythm. . ABDOMEN: Soft, nondistended. No rigidity or guarding. Not peritoneal. No tenderness to palpation throughout. EXTREMITIES: Normal range of motion. No lower extremity edema. SKIN: Warm, dry, no rash. NEURO: No focal deficits. Alert and oriented. Answering questions. Following commands. Normal speech without aphasia or dysarthria. PSYCH: Normal mood and affect. Course Vital Signs Vital signs: Vital Signs Temperature 97.8 F 11/15/24 20:10 Pulse Rate 86 11/15/24 20:10 Respiratory Rate 20 11/15/24 20:10 Blood Pressure 114/57 L 11/15/24 20:10 Pulse Oximetry 100 11/15/24 20:10 Temperature 98.5 F 11/16/24 03:34 Pulse Rate 87 11/16/24 03:34 Respiratory Rate 18 11/16/24 03:34 Blood Pressure 135/72 11/16/24 03:34 Pulse Oximetry 98 11/16/24 03:34 MDM - Female Genitourinary MDM Narrative Medical decision making narrative: This patient is a 24 yo G 2 P1001 female at 5w2d by stated LMP 10/10/24 who comes to the emergency department with vaginal bleeding as well as crampy abdominal pain. In the emergency department she is afebrile and hemodynamically stable, initial BP with low diastolic but MAP 77mmHg and repeat WNL. Considered ectopic , spectrum of miscarriage/ (threatened, inevitable, incomplete, complete, septic) as well as causes of female-specific abdominal pain unrelated to (e.g., pelvic inflammatory disease with or without tubo-ovarian abscess, Xpcx-Nofm-Yavbiz, UTI, ovarian torsion, etc.). Also considered causes of abdominal pain that are not gender-specific (e.g., appendicitis, volvulus, small bowel obstruction, mesenteric adenitis, nephrolithiasis, acute cholecystitis/choledocholithiasis and other biliary pathology, etc.). Benign abdominal examination Type and screen and serum beta hCG (quantitative) are ordered. Beta-hCG is <1700 , above the discriminatory zone ; ultrasound imaging ordered to r/o ectopic. Normal renal function. Chronic mild hyponatremia. Leukocytosis. No anemia. Patient is Rh + and therefore does not require RhoGAM. Patient has an abnormal urinalysis. There is no bacteriuria and I do not suspect a urinary tract infection but urine culture has reflexed and can be followed up on as per ACOG guidelines. US as below. Discussed this uncertainty with patient. Her vitals remained stable. My suspicion for acute abdomen is quite low and she was given strict return precautions for vaginal bleeding or discharge, fever (temperature above 100.4F), lightheadedness/syncope, intractable pain, etc. I did talk with on-call Ob Gyne for the [facility]/ her for practice, Dr. Au who recommended repeat Bhcg in 48 hours. She noted that the outpatient order could have results Cc'd to her for follow up. She is otherwise advised to follow up with her OBGYN. She is provided prescription for acetaminophen and vitamins. Otherwise stable for discharge. Lab Data Attestation: I reviewed the patient's lab results. 11/15/24 23:32 11/15/24 23:32 Labs: Lab Results 11/15/24 Range/Units 23:32 WBC 15.4 H (4.5-10.0) K/mm3 RBC 4.38 (4.2-5.4) M/mm3 Hgb 12.8 D (12.0-15.0) g/dL Hct 37.8 (37.0-47.0) % MCV 86.3 (80-100) fl MCH 29.2 (26-34) pg MCHC 33.9 (32-36) g/dl RDW 12.5 (11.5-14.5) % Plt Count 281 (150-375) k/mm3 MPV 9.4 (7.4-10.4) fl Immature Gran % (Auto) 0.5 (0-0.5) % Neut % (Auto) 69.9 (45.5-73.1) % Lymph % (Auto) 23.0 (18.3-44.2) % Marinette % (Auto) 5.6 (2.6-8.5) % Eos % (Auto) 0.5 (0-4.4) % Baso % (Auto) 0.5 (0.2-1.2) % Lymph # (Auto) 3.55 H (0.9-3.2) K/mm3 Marinette # (Auto) 0.9 H (0.1-0.6) K/mm3 Eos # (Auto) 0.1 (0-0.3) K/mm3 Baso # (Auto) 0.1 (0.0-0.1) K/mm3 Abs Immat Gran (auto) 0.07 H (0.00-0.031) K/mm3 Absolute Neuts (auto) 10.8 H (1.3-6.7) K/mm3 Absolute Nucleated RBC 0.000 (0.0-0.012) K/mm3 Nucleated RBC % 0.0 (0.0-0.2) % PT 13.2 (11.1-14.7) Seconds INR 1.0 APTT 29.8 (22.3-36.8) Seconds Sodium 136 L (137-145) mmol/L Potassium 4.3 (3.4-5.0) mmol/L Chloride 103 (98-107) mmol/L Carbon Dioxide 24 (22-30) mmol/L Anion Gap 9 (4-12) mmol/L BUN 12 D (7-17) mg/dL Creatinine 0.47 L (0.7-1.0) mg/dL Estim Creat Clear Calc 127 ml/min Estimated GFR > 60 (59 - ) Glucose 93 (65-110) mg/dL Calcium 9.1 (8.4-10.2) mg/dL Beta HCG, Quant 1777.60 mIU/ML Urine Color Yellow (Yellow) Urine Appearance Clear (Clear) Urine pH 6.5 (5.0-9.0) Ur Specific Reading 1.021 (1.001-1.035) Urine Protein Negative (Negative) mg/dL Urine Glucose (UA) Negative (Negative) mg/dL Urine Ketones Negative (Negative) mg/dL Ur Blood (Man) 3+ H (Negative) Urine Nitrate Negative (Negative) Urine Bilirubin Negative (Negative) Urine Urobilinogen 1.0 (<2.0) mg/dL Leukocyte Esterase Rfl Trace H (Negative) SANTIAGO/UL Urine RBC 3-5 H (0-2) /hpf Urine WBC 6-10 H (0-3) /hpf Ur Squamous Epith Cells None seen (Few) /hpf Urine Bacteria None seen /hpf Urine Casts 0-2 Urine Test Positive Blood Type O Positive Antibody Screen Negative Imaging Data Radiologist's impression: US Pelvic/OB: Single intrauterine gestation without definite cardiac activity. Recommended close follow-up. Consider early viable or failed . Ultrasound age 5 weeks 2 days. Gestational sac 0.5 cm. No acute finding. Discharge Plan Discharge Clinical Impression: Hyponatremia, Leukocytosis, Abnormal urinalysis, Confirmed intrauterine on ultrasound, Abdominal pain during in first trimester, Vaginal bleeding affecting early Patient Disposition: Home Condition: Stable Instructions: Antibiotic Form, Threatened Miscarriage (ED), Abdominal Pain in (ED), Non-Threatening First Trimester Vaginal Bleed (ED) Additional Instructions: as we discussed, you have a single intrauterine estimated to be 5 weeks 2 days however there was no cardiac activity. Given you are less than 6 weeks , this can represent either early viable or a failed that you will miscarry. The ObGyn covering for Dr Mays recommends repeating the Beta Hcg blood test in 48 hours (i.e. on 11/18) to see its trend. An order for this has been provided which you can take to the lab. acetaminophen/ Tylenol is safe to take during . Take vitamins. return to the emergency department with any new or worsening symptoms. In particular, return to the emergency department with any abdominal pain that is intractable despite acetaminophen use, fever greater than 100.4? F, or if your bleeding saturating 2 maxi pads per hour for 2-3 hours or if you pass out/feel like you might faint, feel short of breath. Patient Language: Indian Prescriptions: New Gummies 400 mcg-35 mg- 25 mg-5 mg tablet,chewable 1 tablet PO DAILY Qty: 30 0RF acetaminophen 650 mg tablet extended release 650 mg PO Q8H PRN (Reason: pain) Qty: 30 0RF No Action Gummies 400 mcg-35 mg- 25 mg-5 mg tablet,chewable 1 tablet PO DAILY fluconazole 150 mg tablet 150 mg PO Q72H Qty: 2 0RF Rx Instructions: as a single dose Other Ambulatory Orders: Beta HCG Quantitative (Routine) Timeframe: 2 Days Location: Determined by Patient Ordered By: Cielo Tran Follow-up/Referrals: PHYSICIAN NOT ON STAFF,NONSTAFF [Primary Care Provider] Mina Mays MD [Physician, SYSTEMS SOFTWARE SPECIALIST] Stand Alone Forms: Work/School Release IP Time of Disposition: 03:30
[2024-11-16 00:24] LABS: Beta HCG Quantitative 1777.60 mIU/ML
--- NOTE | 2024-11-16 01:30 | PC.NURSE ---
Pt to US at this time
[2024-11-16] MEDS: ACETAMINOPHEN 325 MG TABLET 650 MG PO (03:15)
== END 2024-11-16 03:46 | disposition home or self-care (01) ==
PROVIDERS: Emergency Provider Student in an Organized Health Care Education/Training Program
DX: O20.9 Hemorrhage in early pregnancy, unspecified (principal); O26.891 Other specified pregnancy related conditions, first trimester; R10.9 Unspecified abdominal pain; R82.998 Other abnormal findings in urine; O99.891 Other specified diseases and conditions complicating pregnancy; D72.829 Elevated white blood cell count, unspecified; O99.281 Endocrine, nutritional and metabolic diseases complicating pregnancy, first trimester; E87.1 Hypo-osmolality and hyponatremia; Z3A.01 Less than 8 weeks gestation of pregnancy
CPT/HCPCS: 36415; 76801; 76817; 80048; 81001; 81025; 84702; 85025; 85610; 85730; 86850; 86900; 86901; 87086; 99284; A9270

== ENCOUNTER 2024-11-18 12:45 | Emergency (ER) | payer MEDICAID, SELFPAY ==
[2024-11-18 12:46] VITALS: BP 109/59; PULSE 86; RESP 14; TEMP 36.8; O2SAT 99
--- OUTSIDE RECORDS SUMMARY | 2024-11-18 12:46 | XMS_ITS | Clinical Summary ---
Author Organization [facility] Address [address] [place] [address] Care Team Providers Care Budget Assistant Name Role Phone Unavailable Primary Care Provider Unavailabl e Source Comments [facility],non-owned Affiliates and Associated Physician Practices is amultiple site organization consisting of ambulatory clinics and hospital sitesin [place], [place], [place] and [place]. This disclosure is being madepursuant to the Care Everywhere program and may not contain all information available regarding this patient. Last updated 17.[facility] Allergies No known active allergies Medications * Be aware that medications may not be up to date on this document. Alwaysverify current medications with the patient. No known medications Social History Tobacco Use Types Packs/Day Years Used Date Smoking Tobacco: Never Smokeless Tobacco: Never Alcohol Use Standard Drinks/Week Comments Never 0 (1 standard drink = 0.6 oz pur e alcohol) AUDIT-C Answer Date Recorded Q1: How often do you have a drink containing alc ohol? 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 Oxygen Saturation 99% 03/19/2020 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 Inhaled Oxygen Concentration - - Weight 54.6 kg (120 lb 5.9 oz) 03/19/2020 9:30 A M [employer]END[employer] Height 155 cm (5' 1.02) 03/19/2020 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 Body Mass Index 22.73 03/19/2020 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 Plan of Treatment Health Maintenance Due Date Last Done Comments HIV SCREENING 2017 HPV VACCINE (1 - 3-dose series) 2017 CHLAMYDIA/GONORRHEA SCREENING 2018 MENINGOCOCCAL (Group B) VACC INE SHARED DECISION-MAKING (1 of 2 - Standard) 2018 HEPATITIS C SCREENING 04/29/2020 DTAP/TDAP/TD VACCINES (1 - Tdap) 2021 HEPATITIS B VACCINE (1 of 3 - 19+ 3-dose series) 2021 PAP SMEAR 05/05/2023 DEPRESSION SCREENING 02/09/2024 COVID-19 VACCINE (1 - 2023-2 5 season) 2024 INFLUENZA VACCINE (#1) 2024 ZOSTER VACCINE (1 of 2) 2052 HIB VACCINE Aged Out No longer eligi ble based on patient's age to complete this topic MENINGOCOCCAL GROUPS A/C/Y/W VACCINE Aged Out No longer eligible b ased on patient's age to complete this topic PNEUMOCOCCAL VACCINE Aged Out No long er eligible based on patient's age to complete this topic Insurance [facility]
--- OUTSIDE RECORDS SUMMARY | 2024-11-18 13:35 | XMS_ITS | Clinical Summary ---
Author Organization [facility] Address [address] [place] [id number] Care Team Providers Care Aviation Electrical Technician Name Role Phone Cathy Knox PA-C Primary Care Provider [phone] Allergies No known active allergies Social History Tobacco Use Types Packs/Day Years Used Date Smoking Tobacco: Never Smokeless Tobacco: Never Alcohol Use Standard Drinks/Week Comments Not Currently 0 (1 standard drink = 0.6 oz pur e alcohol) Comments No Sex and Gender Information Value Date Recorded Sex Assigned at Not on file Legal Sex Female 12:49 AM MINING AND QUARRYING MACHINERY REPAIRER Gender Identity Not on file Sexual Orientation Not on file Last Filed Vital Signs Vital Sign Reading Time Taken Comments Blood Pressure 133/85 12/15/2021 1:02 AM MINING AND QUARRYING MACHINERY REPAIRER Pulse 103 12/15/2021 1:02 AM MINING AND QUARRYING MACHINERY REPAIRER Temperature 37 C (98.6 F) 12/15/2021 1:02 AM MINING AND QUARRYING MACHINERY REPAIRER Respiratory Rate 18 12/15/2021 1:02 AM MINING AND QUARRYING MACHINERY REPAIRER Oxygen Saturation 99% 12/15/2021 1:02 AM MINING AND QUARRYING MACHINERY REPAIRER Inhaled Oxygen Concentration - - Weight 55 kg (121 lb 4.1 oz) 12/15/2021 1:02 AM MINING AND QUARRYING MACHINERY REPAIRER Height 152.4 cm (5') 12/15/2021 1:02 AM MINING AND QUARRYING MACHINERY REPAIRER Body Mass Index 23.68 12/15/2021 1:02 AM MINING AND QUARRYING MACHINERY REPAIRER Plan of Treatment Health Maintenance Due Date Last Done Comments Cervical Cancer Screening Pa p Smear (Age 21 to 29) Every 3 Years 2002 Cervical Cancer Screening 2002 Annual Physical 2005 HPV Vaccines (1 - 3-dose series) 2017 Chlamydia Screening Females ages 16-24 2018 Meningococcal B Vaccine (1 o f 2 - Standard) 2018 Hepatitis C 2020 DTaP, Tdap and Td Vaccines ( 1 - Tdap) 2021 Hepatitis B Vaccines (1 of 3 - 19+ 3-dose series) 2021 COVID-19 Vaccine (2 - 2024-2 6 season) 2024 09/03/2020 Influenza Adult (#1) 2024 Meningococcal Vaccine Aged Out No nathalie christy eligible based on patient's age to complete this topic Pneumococcal Vaccine: Pediat rics (0 to 5 Years) and At-Risk Patients (6 to 49 Years) Aged Out No longer eligi ble based on patient's age to complete this topic RSV Immunizations Under 20 Months Aged Out No longer eligible based on patient's age to complete this topic Care Teams Aviation Electrical Technician Relationship Specialty Start Date End Date Cathy Knox PA-C PCP - General NURSE PRACTITIONER 12/15/21
[2024-11-18 13:36] LABS: Beta HCG Quantitative 1702.90 mIU/ML
--- NOTE | 2024-11-18 14:24 | ED.GENADULT ---
HPI - General Adult General Chief complaint: Recheck/Abnormal Lab/Rx Stated complaint: beta HCG blood draw Time Seen by Provider: 11/18/24 13:04 History of Present Illness HPI narrative: This is a presenting at 5 weeks gestation for follow-up hCG. Patient was seen here 2 days ago with bleeding in . Ultrasound at that time showed a 5 week and 2 day pole with no discernible heart rate on ultrasound which was thought to be due to early gestational age versus miscarriage. HCG at that time was 1700. She was instructed to return in 2 days for repeat hCG. Patient had heavier bleeding yesterday although it appears to have slowed down and she now only has some mild abdominal cramping. Related Data Home Medications ?Medication ?Instructions ?Recorded ?Confirmed ?Last Taken ?Type PNV 153-FA 400 mcg-om3 35 mg-dha 1 tablet PO DAILY 09/02/22 09/06/24 04/26/23 07:00 History 25 mg-epa 5 mg-fish oil chew tablet ( Gummies) Allergies Allergy/AdvReac Type Severity Reaction Status Date / Time No Known Allergies Allergy Verified 09/06/24 14:37 [facility] Past Medical History Medical History and not yet delivered Vaginal discharge Suppression of menses Surgical History Surgical History History of hysteroscopy 06/22/2022 Hysteroscopy with D&C Social History Social History Social History: Smoking status: Never smoker Alcohol intake: never Substance use: never Substance use type: does not use Do You Feel Safe in your Home?: No Lack of Transportation: No Lack of Food: Never True Current Housing: I Have Housing Concerned About Future Housing: No Difficulty Paying Gas/Electric Bills: No Difficulty Paying for Meds: No Currently Unemployed: YES Education: High School Diploma/GED Difficulty w/ Childcare or Family Care: No Living arrangements: with family Additional living arrangements comments: and daughter Occupation/Education: occupation 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 Head: atraumatic. EYES: EOMI, NOSE: Atraumatic NECK: Trachea midline RESPIRATORY: No increased rate of breathing CARDIOVASCULAR: RRR, ABDOMINAL: Non-distended soft nontender no guarding or rebound MUSCULOSKELETAl: No obvious deformities NEURO: Alert. Moving 4/4 extremities SKIN:: Warm, dry. Normal color PSYCHIATRIC: Normal affect Course Vital Signs Vital signs: Vital Signs Temperature 98.2 F 11/18/24 12:46 Pulse Rate 86 11/18/24 12:46 Respiratory Rate 14 11/18/24 12:46 Blood Pressure 109/59 L 11/18/24 12:46 Pulse Oximetry 99 11/18/24 12:46 Oxygen Delivery Room Air 11/18/24 12:46 Temperature 98.2 F 11/18/24 12:46 Pulse Rate 86 11/18/24 12:46 Respiratory Rate 14 11/18/24 12:46 Blood Pressure 109/59 L 11/18/24 12:46 Pulse Oximetry 99 11/18/24 12:46 Oxygen Delivery Room Air 11/18/24 12:46 Medical Decision Making MDM Narrative Medical decision making narrative: -Course: 24-year-old female presenting for repeat hCG. Repeat hCG was flat at 5:00 p.m.. This was discussed with Dr. Mays. He would like another repeat hCG in 48 hours. Patient will be instructed to follow-up with the clinic to arrange close follow-up. Given return precautions for bleeding. -DDX includes but is not limited to: Threatened miscarriage, miscarriage Vital Signs Vital Signs: Vital Signs Temperature 98.2 F 11/18/24 12:46 Pulse Rate 86 11/18/24 12:46 Respiratory Rate 14 11/18/24 12:46 Blood Pressure 109/59 L 11/18/24 12:46 Pulse Oximetry 99 11/18/24 12:46 Oxygen Delivery Room Air 11/18/24 12:46 Temperature 98.2 F 11/18/24 12:46 Pulse Rate 86 11/18/24 12:46 Respiratory Rate 14 11/18/24 12:46 Blood Pressure 109/59 L 11/18/24 12:46 Pulse Oximetry 99 11/18/24 12:46 Oxygen Delivery Room Air 11/18/24 12:46 Lab Data Labs: Lab Results 10/11/25 Range/Units 12:58 Beta HCG, Quant 1702.90 mIU/ML Discharge Plan Discharge Clinical Impression: Threatened miscarriage Patient Disposition: Home Condition: Stable Instructions: Antibiotic Form, Threatened Miscarriage (ED) Additional Instructions: You were seen emergency department for a repeat hCG. Repeat hCG today is 1700. This needs to be repeated in [address] Mays's clinic to arrange f/u on wednesday. return if you develop severe bleeding, abdominal pain, or fainting. Patient Language: Mongolian Prescriptions: No Action Gummies 400 mcg-35 mg- 25 mg-5 mg tablet,chewable 1 tablet PO DAILY Gummies 400 mcg-35 mg- 25 mg-5 mg tablet,chewable 1 tablet PO DAILY Qty: 30 0RF acetaminophen 650 mg tablet extended release 650 mg PO Q8H PRN (Reason: pain) Qty: 30 0RF fluconazole 150 mg tablet 150 mg PO Q72H Qty: 2 0RF Rx Instructions: as a single dose Other Ambulatory Orders: Beta HCG Quantitative (Routine) Timeframe: 2 Days Location: Determined by Patient Ordered By: Neo Haddad Follow-up/Referrals: PHYSICIAN NOT ON STAFF,NONSTAFF [Primary Care Provider] Mina Mays MD [Physician, HOOP RIVETING MACHINE OPERATOR HELPER] - 1 Day Referral Note: Threatened miscarriage. Flat HCGs.
== END 2024-11-18 14:56 | disposition home or self-care (01) ==
PROVIDERS: Emergency Medicine; Emergency Provider Emergency Medicine
DX: O20.0 Threatened abortion (principal); Z3A.01 Less than 8 weeks gestation of pregnancy
CPT/HCPCS: 36415; 84702; 99283

== ENCOUNTER 2024-11-20 14:50 | Outpatient (CLI) | payer SELFPAY ==
--- OUTSIDE RECORDS SUMMARY | 2024-11-20 15:54 | XMS_ITS | Clinical Summary ---
Author Organization [facility] Address [address] [place] [address] Care Team Providers Care Volunteer Services Specialist Name Role Phone Unavailable Primary Care Provider Unavailabl e Source Comments [facility],non-owned Affiliates and Associated Physician Practices is amultiple site organization consisting of ambulatory clinics and hospital sitesin [place], [place], [place] and [place]. This disclosure is being madepursuant to the Care Everywhere program and may not contain all information available regarding this patient. Last updated 17.[facility] Care Thread Allergies No known active allergies Medications * [...] on file Legal Sex Female 2:37 PM METAL CEILING HANGER Gender Identity Not on file Sexual Orientation Not on file Last Filed Vital Signs Vital Sign Reading Time Taken Comments Blood Pressure 112/68 03/19/2020 9:30 AM METAL CEILING HANGER Pulse 84 03/19/2020 9:30 AM METAL CEILING HANGER Temperature - - Respiratory Rate 24 03/19/2020 9:30 AM METAL CEILING HANGER Oxygen Saturation 99% 03/19/2020 9:30 AM METAL CEILING HANGER Inhaled Oxygen Concentration - - Weight 54.6 kg (120 lb 5.9 oz) 03/19/2020 9:30 A M METAL CEILING HANGER Height 155 cm (5' 1.02) 03/19/2020 9:30 AM METAL CEILING HANGER Body Mass Index 22.73 03/19/2020 9:30 AM METAL CEILING HANGER Plan of Treatment Health Maintenance Due Date [...] patient's age to complete this topic Insurance [facility]
--- OUTSIDE RECORDS SUMMARY | 2024-11-20 15:54 | XMS_ITS | Clinical Summary ---
Author Organization [facility] Address [address] [place] [id number] Care Team Providers Care Operations Management Trainee Name Role Phone Cathy Knox PA-C Primary Care Provider [phone] Allergies No known active allergies Social History Tobacco Use Types Packs/Day Years Used Date Smoking Tobacco: Never Smokeless Tobacco: Never Alcohol Use Standard Drinks/Week Comments Not Currently 0 (1 standard drink = 0.6 oz pur e alcohol) Comments No Sex and Gender Information Value Date Recorded Sex Assigned at Not on file Legal Sex Female 12:49 AM CORPORATE SECRETARY Gender Identity Not on file Sexual Orientation Not on file Last Filed Vital Signs Vital Sign Reading Time Taken Comments Blood Pressure 133/85 12/15/2021 1:02 AM CORPORATE SECRETARY Pulse 103 12/15/2021 1:02 AM CORPORATE SECRETARY Temperature 37 C (98.6 F) 12/15/2021 1:02 AM CORPORATE SECRETARY Respiratory Rate 18 12/15/2021 1:02 AM CORPORATE SECRETARY Oxygen Saturation 99% 12/15/2021 1:02 AM CORPORATE SECRETARY Inhaled Oxygen Concentration - - Weight 55 kg (121 lb 4.1 oz) 12/15/2021 1:02 AM CORPORATE SECRETARY Height 152.4 cm (5') 12/15/2021 1:02 AM CORPORATE SECRETARY Body Mass Index 23.68 12/15/2021 1:02 AM CORPORATE SECRETARY Plan of Treatment Health Maintenance Due Date [...] age to complete this topic Care Teams Operations Management Trainee Relationship Specialty Start Date End Date Cathy Knox PA-C PCP - General NURSE PRACTITIONER 12/15/21
[2024-11-20 15:55] LABS: Beta HCG Quantitative 1959.90 mIU/ML
== END 2024-11-20 14:51 | disposition home or self-care (01) ==
PROVIDERS: Visit Provider Emergency Medicine
DX: O20.0 Threatened abortion (principal); Z3A.00 Weeks of gestation of pregnancy not specified
CPT/HCPCS: 36415; 84702

== ENCOUNTER 2024-11-22 14:35 | Outpatient (CLI) | payer MEDICAID, SELFPAY ==
[2024-11-22 15:21] LABS: Beta HCG Quantitative 1473.00 mIU/ML
--- OUTSIDE RECORDS SUMMARY | 2024-11-22 16:52 | XMS_ITS | Clinical Summary ---
Author Organization [facility] Address [address] [place] [address] Care Team Providers Care Gill Box Operator Name Role Phone Unavailable Primary Care Provider Unavailabl e Source Comments [facility],non-owned Affiliates and Associated Physician Practices is amultiple site organization consisting of ambulatory clinics and hospital sitesin [place], [place], [place] and [place]. This disclosure is being madepursuant to the Care Everywhere program and may not contain all information available regarding this patient. Last updated 17.[facility] [employer] Allergies No known active allergies Medications * [...] on file Legal Sex Female 2:37 PM SENIOR ACCOUNTING SPECIALIST Gender Identity Not on file Sexual Orientation Not on file Last Filed Vital Signs Vital Sign Reading Time Taken Comments Blood Pressure 112/68 03/19/2020 9:30 AM SENIOR ACCOUNTING SPECIALIST Pulse 84 03/19/2020 9:30 AM SENIOR ACCOUNTING SPECIALIST Temperature - - Respiratory Rate 24 03/19/2020 9:30 AM SENIOR ACCOUNTING SPECIALIST Oxygen Saturation 99% 03/19/2020 9:30 AM SENIOR ACCOUNTING SPECIALIST Inhaled Oxygen Concentration - - Weight 54.6 kg (120 lb 5.9 oz) 03/19/2020 9:30 A M SENIOR ACCOUNTING SPECIALIST Height 155 cm (5' 1.02) 03/19/2020 9:30 AM SENIOR ACCOUNTING SPECIALIST Body Mass Index 22.73 03/19/2020 9:30 AM SENIOR ACCOUNTING SPECIALIST Plan of Treatment Health Maintenance Due Date [...] patient's age to complete this topic Insurance [facility]
--- OUTSIDE RECORDS SUMMARY | 2024-11-22 16:52 | XMS_ITS | Clinical Summary ---
Author Organization [facility] Address [address] [place] [address] Care Team Providers Care Sales Service Route Manager Name Role Phone Cathy Knox PA-C Primary Care Provider [phone] Allergies No known active allergies Social History Tobacco Use Types Packs/Day Years Used Date Smoking Tobacco: Never Smokeless Tobacco: Never Alcohol Use Standard Drinks/Week Comments Not Currently 0 (1 standard drink = 0.6 oz pur e alcohol) Comments No Sex and Gender Information Value Date Recorded Sex Assigned at Not on file Legal Sex Female 12:49 AM FEDERAL APPELLATE LAW CLERK Gender Identity Not on file Sexual Orientation Not on file Last Filed Vital Signs Vital Sign Reading Time Taken Comments Blood Pressure 133/85 12/15/2021 1:02 AM FEDERAL APPELLATE LAW CLERK Pulse 103 12/15/2021 1:02 AM FEDERAL APPELLATE LAW CLERK Temperature 37 C (98.6 F) 12/15/2021 1:02 AM FEDERAL APPELLATE LAW CLERK Respiratory Rate 18 12/15/2021 1:02 AM FEDERAL APPELLATE LAW CLERK Oxygen Saturation 99% 12/15/2021 1:02 AM FEDERAL APPELLATE LAW CLERK Inhaled Oxygen Concentration - - Weight 55 kg (121 lb 4.1 oz) 12/15/2021 1:02 AM FEDERAL APPELLATE LAW CLERK Height 152.4 cm (5') 12/15/2021 1:02 AM FEDERAL APPELLATE LAW CLERK Body Mass Index 23.68 12/15/2021 1:02 AM FEDERAL APPELLATE LAW CLERK Plan of Treatment Health Maintenance Due Date [...] season) 2024 09/03/2020 Influenza Adult (#1) 2024 Hepatitis A Vaccines Aged Out No long er eligible based on patient's age to complete this topic Meningococcal Vaccine Aged Out No nathalie christy [...] age to complete this topic Care Teams Sales Service Route Manager Relationship Specialty Start Date End Date Cathy Knox PA-C PCP - General NURSE PRACTITIONER 12/15/21
== END 2024-11-22 14:36 | disposition home or self-care (01) ==
LOC: ANHLAB 14:36
PROVIDERS: Visit Provider Student in an Organized Health Care Education/Training Program
DX: O20.9 Hemorrhage in early pregnancy, unspecified (principal); Z3A.00 Weeks of gestation of pregnancy not specified
CPT/HCPCS: 36415; 84702

== ENCOUNTER 2024-11-28 20:27 | Emergency (ER) | payer OTHER, SELFPAY ==
--- NOTE | ~2024-11-28 | US_ITS ---
US OB <= 14 weeks fetus 11/28/2024 23:21 Indication: 7 weeks . Bleeding. Procedure: Transabdominal ultrasound of the pelvis Comparison: Ultrasound dated 11/16/2024 Findings: No evidence for intrauterine . Gestational sac seen on prior examination not visualized on the current study. No pole or heart motions detected. Uterus within normal limits. Uterus measures 7.6 x 3.3 x 6.4 cm. Endometrium measures 5 mm. Ovaries within normal limits without significant solid or cystic mass. Impression: 1: Unremarkable pelvic ultrasound. No evidence for gestational sac seen on prior study. Findings compatible with failed early . No evidence for retained products of conception. Recommend follow-up ultrasound and quantitative beta hCG levels as clinically warranted. Reviewed, dictated and finalized at location O. Impression: 1: Unremarkable pelvic ultrasound. No evidence for gestational sac seen on prio r study. Findings compatible with failed early . No evidence for retai tommie products of conception. Recommend follow-up ultrasound and quantitative bet a hCG levels as clinically warranted.
[2024-11-28 20:40] VITALS: BP 117/82; PULSE 72; RESP 16; TEMP 36.4; O2SAT 100
--- NOTE | 2024-11-28 21:28 | PC.NURSE ---
RN placed patient on a shireen pad and new menstrual pad to check bleeding.
--- OUTSIDE RECORDS SUMMARY | 2024-11-28 22:27 | XMS_ITS | Clinical Summary ---
Author Organization [facility] Address [address] [place] [address] Care Team Providers Care Youth Care Specialist Name Role Phone Unavailable Primary Care Provider Unavailabl e Source Comments [facility],non-owned Affiliates and Associated Physician Practices is amultiple site organization consisting of ambulatory clinics and hospital sitesin [place], [place], [place] and [place]. This disclosure is being madepursuant to the Care Everywhere program and may not contain all information available regarding this patient. Last updated 17.[facility] [employer] Allergies No known active allergies Medications * [...] on file Legal Sex Female 2:37 PM COUPON MANIFEST CLERK Gender Identity Not on file Sexual Orientation Not on file Last Filed Vital Signs Vital Sign Reading Time Taken Comments Blood Pressure 112/68 03/19/2020 9:30 AM COUPON MANIFEST CLERK Pulse 84 03/19/2020 9:30 AM COUPON MANIFEST CLERK Temperature - - Respiratory Rate 24 03/19/2020 9:30 AM COUPON MANIFEST CLERK Oxygen Saturation 99% 03/19/2020 9:30 AM COUPON MANIFEST CLERK Inhaled Oxygen Concentration - - Weight 54.6 kg (120 lb 5.9 oz) 03/19/2020 9:30 A M COUPON MANIFEST CLERK Height 155 cm (5' 1.02) 03/19/2020 9:30 AM COUPON MANIFEST CLERK Body Mass Index 22.73 03/19/2020 9:30 AM COUPON MANIFEST CLERK Plan of Treatment Health Maintenance Due [...] patient's age to complete this topic Insurance [facility]
--- OUTSIDE RECORDS SUMMARY | 2024-11-28 22:27 | XMS_ITS | Clinical Summary ---
Author Organization [facility] Address [address] [place] [address] Care Team Providers Care Road Freight Firer Name Role Phone Cathy Knox PA-C Primary Care Provider [phone] Allergies No known active allergies Social History Tobacco Use Types Packs/Day Years Used Date Smoking Tobacco: Never Smokeless Tobacco: Never Alcohol Use Standard Drinks/Week Comments Not Currently 0 (1 standard drink = 0.6 oz pur e alcohol) Comments No Sex and Gender Information Value Date Recorded Sex Assigned at Not on file Legal Sex Female 12:49 AM GLASS HANDLER Gender Identity Not on file Sexual Orientation Not on file Last Filed Vital Signs Vital Sign Reading Time Taken Comments Blood Pressure 133/85 12/15/2021 1:02 AM GLASS HANDLER Pulse 103 12/15/2021 1:02 AM GLASS HANDLER Temperature 37 C (98.6 F) 12/15/2021 1:02 AM GLASS HANDLER Respiratory Rate 18 12/15/2021 1:02 AM GLASS HANDLER Oxygen Saturation 99% 12/15/2021 1:02 AM GLASS HANDLER Inhaled Oxygen Concentration - - Weight 55 kg (121 lb 4.1 oz) 12/15/2021 1:02 AM GLASS HANDLER Height 152.4 cm (5') 12/15/2021 1:02 AM GLASS HANDLER Body Mass Index 23.68 12/15/2021 1:02 AM GLASS HANDLER Plan of Treatment Health Maintenance Due Date [...] age to complete this topic Care Teams Road Freight Firer Relationship Specialty Start Date End Date Cathy Knox PA-C PCP - General NURSE PRACTITIONER 12/15/21
--- NOTE | 2024-11-28 22:58 | ED_ITS ---
HPI - General Chief complaint: Vaginal Bleeding Stated complaint: vag bleed after miscarriage Time Seen by Provider: 11/28/24 20:47 History of Present Illness HPI Narrative: Patient is a 24-year-old female who presents to the ED with vaginal bleeding and abdominal cramping during . She reports her symptoms started on Wednesday. Pt called her OBGYN who advised her that she was most likely having a miscarriage. They advised her to come in if she started experiencing significant bleeding and cramping. Patient reports she has also been feeling dizzy/lightheaded. She denies any recent fevers, urinary symptoms, or acute back pain. Patient reports she has had 1 previous live . Patient reports the vaginal bleeding worsens with movement and ambulation. She reports she has been passing large clots. Related Data Allergies Allergy/AdvReac Type Severity Reaction Status Date / Time No Known Allergies Allergy Verified 11/28/24 20:43 Review of Systems 2 Review of Systems: All systems reviewed & are unremarkable except as noted in HPI and below PMFSH Past Medical History Medical History and not yet delivered Vaginal discharge Suppression of menses Surgical History Surgical History History of hysteroscopy 06/22/2022 Hysteroscopy with D&C Social History Social History Social History: Smoking status: Never smoker Alcohol intake: never Substance use: never Substance use type: does not use Do You Feel Safe in your Home?: No Lack of Transportation: No Lack of Food: Never True Current Housing: I Have Housing Concerned About Future Housing: No Difficulty Paying Gas/Electric Bills: No Difficulty Paying for Meds: No Currently Unemployed: YES Education: High School Diploma/GED Difficulty w/ Childcare or Family Care: No Living arrangements: with family Additional living arrangements comments: and daughter Occupation/Education: occupation 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 HEAD: Normocephalic, atraumatic. NECK: Supple. No adenopathy, no masses. RESPIRATORY: Airway patent, respirations nonlabored. Clear to auscultation bilaterally, no rales, rhonchi, wheezing. CARDIOVASCULAR: Regular rate and rhythm without murmurs, rubs, or gallops. Peripheral pulses 2+ and equal bilaterally. ABDOMINAL: Soft, nontender, nondistended, no hepatosplenomegaly. Normoactive BS. MUSCULOSKELETAL: Moves all extremities. Strength/ROM intact without gross deformities. SKIN: Warm, dry, normal color. No rashes. NEURO: A&O X3. Speech clear. Cranial nerves II-XII intact. No ataxic movements. PSYCHIATRIC: Appropriate mood and affect. Normal interaction. GI/: vaginal exam indicates moderate dark red vaginal bleeding, no visible clots, no pooling in vaginal canal Course Vital Signs Vital signs: Vital Signs Temperature 36.4 C 11/28/24 20:40 Pulse Rate 72 11/28/24 20:40 Respiratory Rate 16 11/28/24 20:40 Blood Pressure 117/82 11/28/24 20:40 Pulse Oximetry 100 11/28/24 20:40 Oxygen Delivery Room Air 11/28/24 20:40 Temperature 36.4 C 11/28/24 20:40 Pulse Rate 72 11/28/24 20:40 Respiratory Rate 16 11/28/24 20:40 Blood Pressure 117/82 11/28/24 20:40 Pulse Oximetry 100 11/28/24 20:40 Oxygen Delivery Room Air 11/28/24 20:40 MDM - OB/Uterine Contractions MDM Narrative Medical decision making narrative: Patient is a 24-year-old female who presents to the ED with vaginal bleeding and abdominal cramping during . She reports her symptoms started on Wednesday. Pt called her OBGYN who advised her that she was most likely having a miscarriage. They advised her to come in if she started experiencing significant bleeding and cramping. Patient reports she has also been feeling dizzy/lightheaded. She denies any recent fevers, urinary symptoms, or acute back pain. Patient reports she has had 1 previous live . Patient reports the vaginal bleeding worsens with movement and ambulation. She reports she has been passing large clots. Labs Ordered: CBC, CMP, beta hCG, UA Imaging Ordered: Ultrasound Ob Medications Ordered: None necessary Results: Patient's ultrasound indicates no intrauterine . No retained products of conception. Recommend correlation with quantitative beta hCG and follow-up ultrasound as clinically indicated. This study does not exclude an ectopic . Diagnosis: Miscarriage, vaginal bleeding Consults: OBGYN (outpatient), Dr. Ness Patient Education/Shared MDM: Results of lab work and imaging shared with patient. She denies the need for pain medication here in the ER but was advised to take Tylenol and ibuprofen together for pain control upon discharge. Patient strongly advised to maintain hydration status and follow-up with her OBGYN on as planned. She will not be discharged home with any new prescriptions. Strict return precautions provided. Patient verbalized understanding and is in agreement with plan. Vital signs stable at time of discharge. All questions answered. Differential Diagnosis Differential diagnosis: Likely other (Threatened , incomplete , urinary tract infection, vaginal bleeding) Lab Data Attestation: I reviewed the patient's lab results. 11/28/24 23:05 11/28/24 23:05 Labs: Lab Results 11/28/24 11/28/24 11/28/24 Range/Units 23:05 23:22 23:26 WBC 8.9 (4.5-10.0) K/mm3 RBC 4.11 L (4.2-5.4) M/mm3 Hgb 12.0 (12.0-15.0) g/dL Hct 35.9 L (37.0-47.0) % MCV 87.3 (80-100) fl MCH 29.2 (26-34) pg MCHC 33.4 (32-36) g/dl RDW 12.5 (11.5-14.5) % Plt Count 305 (150-375) k/mm3 MPV 9.3 (7.4-10.4) fl Immature Gran % (Auto) 0.3 (0-0.5) % Neut % (Auto) 51.7 (45.5-73.1) % Lymph % (Auto) 40.2 (18.3-44.2) % [place] % (Auto) 5.9 (2.6-8.5) % Eos % (Auto) 1.1 (0-4.4) % Baso % (Auto) 0.8 (0.2-1.2) % Lymph # (Auto) 3.59 H (0.9-3.2) K/mm3 [place] # (Auto) 0.5 (0.1-0.6) K/mm3 Eos # (Auto) 0.1 (0-0.3) K/mm3 Baso # (Auto) 0.1 (0.0-0.1) K/mm3 Abs Immat Gran (auto) 0.03 (0.00-0.031) K/mm3 Absolute Neuts (auto) 4.6 (1.3-6.7) K/mm3 Absolute Nucleated RBC 0.000 (0.0-0.012) K/mm3 Nucleated RBC % 0.0 (0.0-0.2) % Sodium 136 L (137-145) mmol/L Potassium 4.1 (3.4-5.0) mmol/L Chloride 103 (98-107) mmol/L Carbon Dioxide 26 (22-30) mmol/L Anion Gap 7 (4-12) mmol/L BUN 12 (7-17) mg/dL Creatinine 0.54 L (0.7-1.0) mg/dL Estim Creat Clear Calc 99 ml/min Estimated GFR > 60 (59 - ) Glucose 94 (65-110) mg/dL Calcium 8.9 (8.4-10.2) mg/dL Total Bilirubin 0.3 (0.2-1.3) mg/dL AST 24 (14-36) U/L ALT 17 (6-35) U/L Alkaline Phosphatase 88 (38-126) U/L Total Protein 6.8 (6.3-8.2) g/dL Albumin 4.2 (3.5-5.1) g/dL Beta HCG, Quant 70.27 mIU/ML Urine Color Yellow (Yellow) Urine Appearance Cloudy H (Clear) Urine pH 6.5 (5.0-9.0) Ur Specific [place] 1.027 (1.001-1.035) Urine Protein Trace (Negative) mg/dL Urine Glucose (UA) Negative (Negative) mg/dL Urine Ketones Trace H (Negative) mg/dL Ur Blood (Man) 3+ H (Negative) Urine Nitrate Negative (Negative) Urine Bilirubin Negative (Negative) Urine Urobilinogen 1.0 (<2.0) mg/dL Leukocyte Esterase Rfl Trace H (Negative) SANTIAGO/UL Urine RBC >100 H (0-2) /hpf Urine WBC 0-5 (0-3) /hpf Ur Squamous Epith Cells None seen (Few) /hpf Urine Bacteria None seen /hpf Urine Casts 0-2 POC Urine HCG, Qual Positive (Negative) Blood Type O Positive Antibody Screen Negative Doses of RhIg Required 0 Imaging Data Attestation: I personally reviewed and interpreted this imaging study as follows: Radiologist's impression: Patient's ultrasound indicates no intrauterine . No retained products of conception. Recommend correlation with quantitative beta hCG and follow-up ultrasound as clinically indicated. This study does not exclude an ectopic . Discharge Plan Discharge Clinical Impression: Vaginal bleeding, Incomplete Patient Disposition: Home Condition: Stable Instructions: Antibiotic Form, Miscarriage (ED) Additional Instructions: Please return to the ER with any worsening symptoms. Follow-up with your OBGYN on , as planned. You may take Tylenol and ibuprofen together for pain control. Please remember to drink lots of water. Patient Language: Emirati Prescriptions: No Action Gummies 400 mcg-35 mg- 25 mg-5 mg tablet,chewable 1 tablet PO DAILY Qty: 30 0RF Follow-up/Referrals: PHYSICIAN NOT ON STAFF,NONSTAFF [Primary Care Provider] Mina Mays MD [Physician, [employer]AD[employer] 1 THROUGH 5 TEACHER] Referral Note: OBGYN Stand Alone Forms: Work/School Release IP Time of Disposition: 01:27
[2024-11-28 23:12] LABS: Hematocrit 35.9 % (37.0-47.0); Hemoglobin 12.0 g/dL (12.0-15.0); Immature Granulocyte Percent A 0.3 % (0-0.5); Lymphocytes Absolute Auto 3.59 K/mm3 (0.9-3.2); Mean Corpuscular HGB Conc 33.4 g/dl (32-36); Mean Corpuscular Hemoglobin 29.2 pg (26-34); Mean Corpuscular Volume 87.3 fl (80-100); Nucleated Red Blood Cells Absolute Auto 0.000 K/mm3 (0.0-0.012); Nucleated Red Blood Cells Perc 0.0 % (0.0-0.2); Platelet Count Result 305 k/mm3 (150-375); Red Blood Count 4.11 M/mm3 (4.2-5.4); White Blood Count 8.9 K/mm3 (4.5-10.0)
[2024-11-28 23:23] LABS: Alanine Aminotransferase 17 U/L (6-35); Albumin Level 4.2 g/dL (3.5-5.1); Alkaline Phosphatase 88 U/L (38-126); Anion Gap 7 mmol/L (4-12); Aspartate Amino Transferase 24 U/L (14-36); Bilirubin,Total 0.3 mg/dL (0.2-1.3); Blood Urea Nitrogen 12 mg/dL (7-17); Calcium 8.9 mg/dL (8.4-10.2); Carbon Dioxide 26 mmol/L (22-30); Chloride 103 mmol/L (98-107); Estimated CRCL calculation 99 ml/min; Estimated Glomerular Filt Rate > 60; Glucose 94 mg/dL (65-110); Potassium 4.1 mmol/L (3.4-5.0); Sodium 136 mmol/L (137-145); Total Protein 6.8 g/dL (6.3-8.2)
[2024-11-28 23:28] LABS: BEDSIDEPREGUCG Positive (Negative)
[2024-11-28 23:36] LABS: Add Urine Microscopic? YES; Appearance Urine Cloudy (Clear); Glucose Urine UA Negative (Negative); Leukocyte Esterase Ur Trace LEU/UL (Negative); Nitrate Urine Negative (Negative); Non Pathogenic Casts 0-2; Specific Grav Ur 1.027 (1.001-1.035)
[2024-11-28 23:39] LABS: Beta HCG Quantitative 70.27 mIU/ML
== END 2024-11-29 01:38 | disposition home or self-care (01) ==
PROVIDERS: Emergency Provider Registered Nurse
DX: O03.4 Incomplete spontaneous abortion without complication (principal)
CPT/HCPCS: 36415; 76801; 80053; 81001; 81025; 84702; 85025; 85461; 86850; 86900; 86901; 99284

== ENCOUNTER 2024-12-08 15:01 | Outpatient (CLI) | payer MEDICAID, SELFPAY ==
--- OUTSIDE RECORDS SUMMARY | 2024-12-08 15:06 | XMS_ITS | Clinical Summary ---
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 PROGRAM DIRECTOR Gender Identity Not on file Sexual Orientation Not on file Last Filed Vital Signs Vital Sign Reading Time Taken Comments Blood Pressure 133/85 12/15/2021 1:02 AM TEENAGE PROGRAM DIRECTOR Pulse 103 12/15/2021 1:02 AM TEENAGE PROGRAM DIRECTOR Temperature 37 C (98.6 F) 12/15/2021 1:02 AM TEENAGE PROGRAM DIRECTOR Respiratory Rate 18 12/15/2021 1:02 AM TEENAGE PROGRAM DIRECTOR Oxygen Saturation 99% 12/15/2021 1:02 AM TEENAGE PROGRAM DIRECTOR Inhaled Oxygen Concentration - - Weight 55 kg (121 lb 4.1 oz) 12/15/2021 1:02 AM TEENAGE PROGRAM DIRECTOR Height 152.4 cm (5') 12/15/2021 1:02 AM TEENAGE PROGRAM DIRECTOR Body Mass Index 23.68 12/15/2021 1:02 AM TEENAGE PROGRAM DIRECTOR Plan of Treatment Health Maintenance Due Date [...] age to complete this topic Care Teams Industrial Psychology Professor Relationship Specialty Start Date End Date Cathy Knox PA-C PCP - General NURSE PRACTITIONER 12/15/21
--- OUTSIDE RECORDS SUMMARY | 2024-12-08 15:06 | XMS_ITS | Clinical Summary ---
Author Organization [facility] Address [address] [place] [address] Care Team Providers Care Electronics Design Engineer Name Role Phone Unavailable Primary Care Provider Unavailabl e Source Comments [facility],non-owned Affiliates and Associated Physician Practices is amultiple site organization consisting of ambulatory clinics and hospital sitesin [place], [place], [place]. This disclosure is being madepursuant to the Care Everywhere program and may not contain all information available regarding this patient. Last updated 17.[facility] [employer] Allergies No known active allergies Medications * [...] on file Legal Sex Female 2:37 PM ACOUSTIC ENGINEER Gender Identity Not on file Sexual Orientation Not on file Last Filed Vital Signs Vital Sign Reading Time Taken Comments Blood Pressure 112/68 03/19/2020 9:30 AM ACOUSTIC ENGINEER Pulse 84 03/19/2020 9:30 AM ACOUSTIC ENGINEER Temperature - - Respiratory Rate 24 03/19/2020 9:30 AM ACOUSTIC ENGINEER Oxygen Saturation 99% 03/19/2020 9:30 AM ACOUSTIC ENGINEER Inhaled Oxygen Concentration - - Weight 54.6 kg (120 lb 5.9 oz) 03/19/2020 9:30 A M ACOUSTIC ENGINEER Height 155 cm (5' 1.02) 03/19/2020 9:30 AM ACOUSTIC ENGINEER Body Mass Index 22.73 03/19/2020 9:30 AM ACOUSTIC ENGINEER Plan of Treatment Health Maintenance Due Date [...] patient's age to complete this topic Insurance [facility]
[2024-12-08 16:10] LABS: Beta HCG Quantitative 4.56 mIU/ML
== END 2024-12-08 15:02 | disposition home or self-care (01) ==
LOC: ANHLAB 15:02
PROVIDERS: Visit Provider Student in an Organized Health Care Education/Training Program
DX: O02.1 Missed abortion (principal)
CPT/HCPCS: 36415; 84702